=== PATIENT | male | born 1960 | race Caucasian/White ===

== ENCOUNTER 2016-10-02 02:52 | Emergency (ER) | payer OTHER ==
[~2016-10-02] VITALS: Ht 182.9 cm; Wt 127.0 kg
[~2016-10-02 02:52] MED LIST: OMEP20CA5 PO; PRIN20TA2 PO
[2016-10-02 02:55] VITALS: BP 174/85; PULSE 85; RESP 16; TEMP 98.5; O2SAT 99
[2016-10-02] MEDS ORDERED: LISI-515 PO (03:19)
--- NOTE | 2016-10-02 03:26 | PD ---
HPI Chief Complaint: Injury Time Seen by Provider: 03:23 Travel History International Travel<30 days: No Contact w/Intl Traveler<30days: No Traveled to known affect area: No History of Present Illness HPI 55-year-old [id number] white male presents emergency Department with complaints of right hand pain. He states that 2 days ago he had struck a filing cabinet with his right hand. He states that he had struck it with his open palm into the corner. He had sudden severe pain followed by some bruising. He iced it down initially and seemed to have improvement. He states now over the last couple of days he is had worsening pain up into his thumb and some tingling. States that the pain has actually gotten worse since the initial injury. He feels the finger is somewhat stiff. Pain is mild-to- moderate. Worse with movement. Some relief with elevation and ice. PFSH Past Medical History Narrative Medical Hypertension GERD: Yes Hypertension: Yes Musculoskeletal: Yes (CHRONIC NECK AND SHOULDER PAIN) Immunizations Current: Yes Tetanus Vaccination: Unknown Influenza Vaccination: No Past Surgical History Surgical History: No Previous Surgery Social History Alcohol Use: No Tobacco Use: No Substance Use: No Allergies-Medications (Allergen,Severity, Reaction): Coded Allergies: Amoxicillin (Verified Allergy, Severe, 09/07/09) Sulfa (Verified Allergy, Severe, 09/07/09) Reported Meds & Prescriptions Reported Meds & Active Scripts Active Reported Lisinopril 20 Mg Tab 20 Mg PO DAILY Review of Systems Except as stated in HPI: all other systems reviewed are Neg Physical Exam Narrative GENERAL: This is a well-nourished, well-developed patient, in no apparent distress. SKIN: No rashes, ecchymoses or lesions. Warm and dry. HEAD: Atraumatic. Normocephalic. EYES: PERRL, EOMI, no discharge or injection. No scleral icterus. EARS: Clear NOSE: Nasal turbinates appear normal. THROAT: Mucosa pink and moist. Airway patent. NECK: Trachea midline. supple, moves head freely. LUNGS: Clear to auscultation. CV: Regular in rhythm. ABDOMEN: Soft nontender. EXT: No clubbing cyanosis . Examination of the right hand reveals tenderness, swelling and ecchymosis to the thenar eminence. The skin is intact. There is no bony tenderness to palpation of the thumb or metacarpals. He has full active and passive range of motion but does elicit moderate discomfort. No pain in the wrist. Good pulses. Good Refill. Data Data Last Documented VS Vital Signs Date Time Temp Pulse Resp B/P Pulse Ox O2 Delivery O2 Flow Rate FiO2 10/02/16 02:55 98.5 85 16 174/85 99 Room Air Orders Hand, Complete ([id number]) (10/02/16 03:17) MDM Medical Decision Making Medical Screen Exam Complete: Yes Emergency Medical Condition: Yes Medical Record Reviewed: Yes Interpretation(s) Right hand: Negative for acute bony injury. Differential Diagnosis MDM: High Differential diagnoses: Fracture, sprain, strain, dislocation, contusion, neurovascular injury Narrative Course Patient's history and exam is consistent with a soft tissue contusion hematoma to the hand. X-rays are negative. Patient is advised to continue ice and elevation and ibuprofen. Diagnosis Primary Impression: contusion/hematoma right hand Additional Impression: Hypertension Qualified Code: I10 - Essential hypertension Patient Instructions: General Instructions Additional Instructions: Rest. Elevation. Continue ice for any acute swelling or pain. 3 Advil every 6 hours for the next week. Recheck with a primary care doctor in 1 week. Return to the ER for any problems. Disposition: 01 DISCHARGE HOME Condition: Stable [place] Posadas Oct 02, 2016 03:26
--- NOTE | 2016-10-02 04:08 | RADRPT ---
EXAM DATE/TIME: 10/02/2016 03:38 [facility] COMPARISON: No previous studies available for comparison. INDICATIONS : Right hand pain after hitting hand against hard and heavy object. MEDICAL HISTORY : None. SURGICAL HISTORY : None. ENCOUNTER: Initial ACUITY: 2 days PAIN SCORE: 7/10 LOCATION: Right lateral hand FINDINGS: Three view examination of the right hand demonstrates no soft tissue swelling, dislocation, or fractu re. The carpal bones appear intact. The interphalangeal and metacarpophalangeal joints are intact. There are mild degenerative changes of the PIP and PIP joints. Bony mineralization is normal. CONCLUSION: 1. No acute fracture or joint dislocation 2. Mild degenerative changes. Doc Mccormick MD on October 02, 2016 at 4:06 Board Certified Radiologist. This report was verified electronically.
== END 2016-10-02 04:27 | disposition home or self-care (01) ==
LOC: NEPK 02:52
DX: S60.221A Contusion of right hand, initial encounter (principal); I10 Essential (primary) hypertension; W22.8XXA Striking against or struck by other objects, initial encounter; Y93.9 Activity, unspecified; Y92.9 Unspecified place or not applicable; K21.9 Gastro-esophageal reflux disease without esophagitis
CPT/HCPCS: 73130; 99283

== ENCOUNTER 2017-11-20 05:55 | Inpatient (IN) | payer SELFPAY ==
[~2017-11-20] VITALS: Ht 182.9 cm; Wt 114.5 kg
[2017-11-20] VITALS (26 sets, daily range): BP systolic 103–175; BP diastolic 61–104; PULSE 45–85; RESP 16–18; TEMP 97.7–98.1; O2SAT 95–99
[~2017-11-20 05:55] MED LIST changes: +LISI-515 PO; -OMEP20CA5 PO; -PRIN20TA2 PO
[2017-11-20] MEDS ORDERED: OMEP20TA93 PO (06:12)
[2017-11-20] MEDS ORDERED: AMLO10TA2 PO (06:12)
[2017-11-20] MEDS ORDERED: ASPIRIN 81 MG CHEW TAB PO ONE (06:15)
[2017-11-20] MEDS ORDERED: SODIUM CHLORIDE 0.9% FLUSH 10 ML FLUSH IVF PRN (06:15)
[2017-11-20] MEDS ORDERED: SODIUM CHLORID 0.9% 500 ML INJ 500 ML IV ONE ×2 (06:15→07:00)
[2017-11-20 06:16] LABS: AUTOMATED NEUTROPHIL # 7.7 TH/MM3 (1.8-7.7); BASOPHIL # 0.1 TH/MM3 (0-0.2); BASOPHIL % 1.6 % (0.0-2.0); EOSINOPHIL % 0.5 % (0.0-4.0); HEMATOCRIT 52.7 % (39.0-51.0); HEMOGLOBIN 17.3 GM/DL (13.0-17.0); LYMPH % 12.3 % (9.0-44.0); LYMPHOCYTE # 1.1 TH/MM3 (1.0-4.8); MEAN CELL VOLUME 82.9 FL (80.0-100.0); MEAN CORPUSCULAR HEMOGLOBIN 27.3 PG (27.0-34.0); MEAN CORPUSCULAR HGB CONC 32.9 % (32.0-36.0); MEAN PLATELET VOLUME 7.6 FL (7.0-11.0); MONO % 2.5 % (0.0-8.0); MONOCYTE # 0.2 TH/MM3 (0-0.9); NEUT % 83.1 % (16.0-70.0); PLATELET COUNT 309 TH/MM3 (150-450); RED BLOOD COUNT 6.36 MIL/MM3 (4.50-5.90); RED CELL DISTRIBUTION WIDTH 12.8 % (11.6-17.2); WHITE BLOOD COUNT 9.1 TH/MM3 (4.0-11.0)
[2017-11-20 06:26] LABS: CHLORIDE 104 MEQ/L (98-107); SODIUM (NA) 138 MEQ/L (136-145)
[2017-11-20 06:28] LABS: INTERNATIONAL NORMALIZED RATIO 1.1 RATIO; PROTHROMBIN TIME - PATIENT 10.7 SEC (9.8-11.6)
[2017-11-20 06:29] LABS: BICARBONATE 25.4 MEQ/L (21.0-32.0); BLOOD UREA NITROGEN 14 MG/DL (7-18); CALCIUM 9.7 MG/DL (8.5-10.1); GLUCOSE,RANDOM 141 MG/DL (74-106); MAGNESIUM 2.3 MG/DL (1.5-2.5)
[2017-11-20 06:33] LABS: GLOMERULAR FILTRATION RATE 86 ML/MIN (>89)
[2017-11-20] MEDS: NITROGLYCERIN 0.4 MG SL 25 TABS/BTL SL SCH ×3 (06:34→07:00)
--- NOTE | 2017-11-20 06:34 | RADRPT ---
EXAM DATE: 11/20/2017 6:23 AM EDT AGE/SEX: 57 years / Male INDICATIONS: Patient complains of burning sensation in center of chest. CLINICAL DATA: This is the patient's initial encounter. Patient reports that signs and symptoms have been present for 1 week and indicates a pain score of 2/10. MEDICAL/SURGICAL HISTORY: None. None. COMPARISON: No prior exams available for comparison. FINDINGS: Single AP view the chest. Focal 3 cm round 1 cm elongated perihilar density in the right mi dlung. Lungs are otherwise clear Cardiomediastinal silhouette within normal limits. No evidence of p leural effusion or pneumothorax. CONCLUSION: Focal density in the right midlung may represent superimposition of bronchovascular struc tures. However it is asymmetric and focal consolidation or mass are also differential diagnosis. Camilo mmend PA and lateral views for further evaluation. Electronically signed by: Paul Tobin MD 11/20/2017 6:33 AM EDT
--- NOTE | 2017-11-20 06:35 | PD ---
HPI Chief Complaint: Chest Pain Time Seen by Provider: 06:04 Travel History International Travel<30 days: No Contact w/Intl Traveler<30days: No Traveled to known affect area: No History of Present Illness HPI 57-year-old male with a past medical history of hypertension and a positive family history of heart disease presents to the emergency room with chest pain that started last night around 11 PM. Pain was 10 out of 10 midsternal nonradiating associated with nausea and shortness of breath. 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 In the emergency room the patient is alert oriented 3 in no apparent distress his chest pain about 4 out of 10. Patient denies smoking drugs or alcohol. Shortly after arrival and during the interview the patient heart rate dropped in the 40s with significant feeling of indigestion and nausea. Symptoms lasted a few seconds and resolved spontaneously. An EKG was done on arrival and it showed normal sinus rhythm at [address] depression in V2 and the 3 without T-wave changes. Patient does not have a affiliate marketing coordinator. He had a negative stress test more than 5 years ago PFS Past Medical History Cardiovascular Problems: Yes (HTN) High Cholesterol: Yes GERD: Yes Hypertension: Yes Musculoskeletal: Yes (CHRONIC NECK AND SHOULDER PAIN) Immunizations Current: Yes Sleep Apnea: Yes (NO CPAP USE) Triglycerides - High: Yes Tetanus Vaccination: > 5 Years Influenza Vaccination: No Past Surgical History Surgical History: No Previous Surgery Social History Alcohol Use: Yes ("VERY RARELY") Tobacco Use: No Substance Use: No Allergies-Medications (Allergen,Severity, Reaction): Coded Allergies: Sulfa (Sulfonamide Antibiotics) (Unverified Allergy, Severe, 11/20/17) amoxicillin (Unverified Allergy, Severe, 11/20/17) Reported Meds & Prescriptions Reported Meds & Active Scripts Active Reported Omeprazole 20 Mg Tab 20 Mg PO DAILY Amlodipine (Amlodipine Besylate) 10 Mg Tab 10 Mg PO DAILY Lisinopril 20 Mg Tab 20 Mg PO DAILY Review of Systems Except as stated in HPI: all other systems reviewed are Neg General / Constitutional: No: Fever, Chills Eyes: No: Blurred Vision, Redness, Pain HENT: No: Rhinorrhea, Congestion, Neck Stiffness, Neck Pain, Earache Cardiovascular: Positive: Chest Pain or Discomfort Respiratory: Positive: Shortness of Breath Gastrointestinal: No: Nausea, Vomiting, Diarrhea, Abdominal Pain, Hematochezia , Constipation Genitourinary: No: Dysuria Musculoskeletal: No: Myalgias Skin: No Rash, No Hives Neurologic: No: Weakness, Dizziness, Syncope, Headache, Slurred Speech, Seizures Psychiatric: No: Suicidal Ideations Physical Exam Narrative Vital Signs Date Time Temp Pulse Resp B/P (MAP) Pulse Ox O2 Delivery O2 Flow Rate FiO2 11/20/17 06:06 97.7 85 18 174/104 (127) 97 GENERAL: Patient is alert and oriented -3 SKIN: Focused skin assessment warm/dry. HEAD: Atraumatic. Normocephalic. EYES: Pupils equal and round. No scleral icterus. No injection or drainage. ENT: No nasal bleeding or discharge. Mucous membranes pink and moist. NECK: Trachea midline. No JVD. CARDIOVASCULAR: Regular rate and rhythm. No murmur appreciated. RESPIRATORY: No accessory muscle use. Clear to auscultation. Breath sounds equal bilaterally. GASTROINTESTINAL: Abdomen soft, non-tender, nondistended. Hepatic and splenic margins not palpable. MUSCULOSKELETAL: No obvious deformities. No clubbing. No cyanosis. No edema. NEUROLOGICAL: Awake and alert. No obvious cranial nerve deficits. Motor grossly within normal limits. Normal speech. PSYCHIATRIC: Appropriate mood and affect; insight and judgment normal. Data Data Last Documented VS Vital Signs Date Time Temp Pulse Resp B/P (MAP) Pulse Ox O2 Delivery O2 Flow Rate FiO2 11/20/17 06:45 76 124/74 (91) 95 Nasal Cannula 2.00 11/20/17 06:06 97.7 18 Orders Orders Electrocardiogram (11/20/17 06:04) Basic Metabolic Panel (Bmp) (11/20/17 06:04) Ckmb (Isoenzyme) Profile (11/20/17 06:04) Complete Blood Count With Diff (11/20/17 06:04) Magnesium (Mg) (11/20/17 06:04) Prothrombin Time / Inr (Pt) (11/20/17 06:04) Act Partial Throm Time (Ptt) (11/20/17 06:04) Troponin I (11/20/17 06:04) Chest, Single Ap (11/20/17 06:04) Ecg Monitoring (11/20/17 06:04) Bilateral Bp Monitoring (11/20/17 06:04) Iv Access Insert/Monitor (11/20/17 06:04) Oximetry (11/20/17 06:04) Oxygen Administration (11/20/17 06:04) Aspirin Chew (Aspirin Chew) (11/20/17 06:15) Sodium Chloride 0.9% Flush (Ns Flush) (11/20/17 06:15) Nitroglycerin Sl (Nitrostat Sl) (11/20/17 06:15) Sodium Chlorid 0.9% 500 Ml Inj (Ns 500 M (11/20/17 06:15) CKMB (11/20/17 06:08) CKMB% (11/20/17 06:08) Heparin Inj (Heparin Inj) (11/20/17 07:00) Heparin Inj (Heparin Inj) (11/20/17 13:00) Heparin Inj (Heparin Inj) (11/20/17 13:00) Heparin-D5w 25,000 U/250 Ml (Heparin-D5w (11/20/17 07:00) Act Partial Throm Time (Ptt) (11/20/17 06:48) Cbc No Diff, Includes Plts (11/20/17 06:48) Cbc No Diff, Includes Plts (11/23/17 06:00) Act Partial Throm Time (Ptt) (11/20/17 13:48) Occult Blood (Hemoccult) Stool (11/20/17 06:48) Heparin Inj (Heparin Inj) (11/20/17 13:00) Heparin Inj (Heparin Inj) (11/20/17 13:00) Admit Order (Ed Use Only) (11/20/17 06:51) Labs Laboratory Tests Test 11/20/17 06:08 White Blood Count 9.1 TH/MM3 Red Blood Count 6.36 MIL/MM3 Hemoglobin 17.3 GM/DL Hematocrit 52.7 % Mean Corpuscular Volume 82.9 FL Mean Corpuscular Hemoglobin 27.3 PG Mean Corpuscular Hemoglobin Concent 32.9 % Red Cell Distribution Width 12.8 % Platelet Count 309 TH/MM3 Mean Platelet Volume 7.6 FL Neutrophils (%) (Auto) 83.1 % Lymphocytes (%) (Auto) 12.3 % Monocytes (%) (Auto) 2.5 % Eosinophils (%) (Auto) 0.5 % Basophils (%) (Auto) 1.6 % Neutrophils # (Auto) 7.7 TH/MM3 Lymphocytes # (Auto) 1.1 TH/MM3 Monocytes # (Auto) 0.2 TH/MM3 Eosinophils # (Auto) 0.0 TH/MM3 Basophils # (Auto) 0.1 TH/MM3 CBC Comment DIFF FINAL Differential Comment Prothrombin Time 10.7 SEC Prothromb Time International Ratio 1.1 RATIO Activated Partial Thromboplast Time 28.9 SEC Blood Urea Nitrogen 14 MG/DL Creatinine 0.90 MG/DL Random Glucose 141 MG/DL Calcium Level 9.7 MG/DL Magnesium Level 2.3 MG/DL Sodium Level 138 MEQ/L Potassium Level 3.9 MEQ/L Chloride Level 104 MEQ/L Carbon Dioxide Level 25.4 MEQ/L Anion Gap 9 MEQ/L Estimat Glomerular Filtration Rate 86 ML/MIN Total Creatine Kinase 217 U/L Creatine Kinase MB 4.2 NG/ML Troponin I 0.27 NG/ML MDM Medical Decision Making Medical Screen Exam Complete: Yes Emergency Medical Condition: Yes Medical Record Reviewed: Yes Differential Diagnosis LA, indigestion, peptic ulcer disease, PE, Narrative Course After 1 sublingual nitro in 500 cc of normal saline patient is pain-free and asymptomatic at this time. Findings have been discussed with the admitting physician. Patient is diagnosed with NSTEMI will be admitted to intensive care unit on heparin drip. Diagnosis Primary Impression: Chest pain Additional Impression: NSTEMI (non-ST elevated myocardial infarction) Admitting Information Admitting Physician Requests: Admit Condition: Critical Dominick Espino MD Nov 20, 2017 06:35
[2017-11-20 06:37] LABS: TROPONIN I 0.27 NG/ML (0.02-0.05)
[2017-11-20] MEDS ORDERED: ACETAMINOPHEN/HYDROcodone 325 MG/7.5 MG TAB PO PRN (07:00)
[2017-11-20] MEDS ORDERED: HEPARIN SODIUM - IV 10,000 UNITS/10 ML VIAL IV ONE (07:00)
[2017-11-20] MEDS ORDERED: HEPARIN-D5W 25,000 U/250 ML 250 ML IV PRN (07:00)
[2017-11-20] MEDS ORDERED: MORPHINE SULFATE 4 MG/ML INJ IV PUSH PRN (07:00)
[2017-11-20] MEDS ORDERED: SODIUM CHLORIDE 0.9% FLUSH 10 ML FLUSH IV FLUSH PRN ×2 (07:00→16:30)
[2017-11-20] MEDS ORDERED: NITROGLYCERIN 0.4 MG SL 25 TABS/BTL SL PRN (07:00)
[2017-11-20] MEDS ORDERED: ACETAMINOPHEN 500 MG CPLT PO PRN (07:00)
[2017-11-20] MEDS ORDERED: MORPHINE SULFATE 2 MG/ML SYRINGE IV PUSH ONE (07:15)
[2017-11-20] MEDS ORDERED: NITROGLYCERIN-D5W 50 MG/250 ML 250 ML IV PRN (07:15)
--- NOTE | 2017-11-20 08:22 | EKG ---
Date Performed: 11/20/2017 Time Performed: 06:26:15 PTAGE: 57 years EKG: Sinus rhythm NONSPECIFIC ST & T-WAVE ABNORMALITY BORDERLINE ECG INTERPRETATION BASED ON A DEFAULT AGE OF 40 YEARS NO PREVIOUS TRACING DOCTOR: Frank Massey Interpretating Date/Time 11/20/2017 08:20:46
--- NOTE | 2017-11-20 08:25 | EKG ---
Date Performed: 11/20/2017 Time Performed: 06:01:48 PTAGE: 57 years EKG: Sinus rhythm ST DEPRESSION, CONSIDER SUBENDOCARDIAL INJURY ABNORMAL ECG NO PREVIOUS TRACING DOCTOR: Frank Massey Interpretating Date/Time 11/20/2017 08:23:53
--- NOTE | 2017-11-20 10:56 | HHI.HP ---
HPI Service [facility] Primary Care Physician Ajay Pena MD Admission Diagnosis NSTEMI ACS Diagnoses: Chief Complaint: chest pain Travel History International Travel<30 Days: No Contact w/Intl Traveler <30 Da: No Traveled to Known Affected Are: No History of Present Illness 57-year-old male with a past medical history of hypertension and a positive family history of heart disease presents to the emergency room with chest pain that started last night around 11 PM. Pain was 10 out of 10 midsternal, nonradiating, associated with nausea, diaphoresis, shortness of breath. 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 In the emergency room the patient is alert oriented 3 in no apparent distress his chest pain about 4 out of 10. Patient denies smoking drugs or alcohol. Shortly after arrival and during the interview the patient heart rate dropped in the 40s with significant feeling of indigestion and nausea. Symptoms lasted a few seconds and resolved spontaneously. An EKG was done on arrival and it showed normal sinus rhythm at [address] depression in V2 and the 3 without T- wave changes. Patient does not have a toe puncher. He had a negative stress test more than 5 years ago. The patient was seen first [facility]. The patient is transferred to [facility]. Review of Systems Except as stated in HPI: all other systems reviewed are Neg Past Family Social History Past Medical History Hypertension, GERD, chronic neck and shoulder pain, sleep apnea not on BiPAP Past Surgical History No surgeries in the past Reported Medications Reported Meds & Active Scripts Active Reported Omeprazole 20 Mg Tab 20 Mg PO DAILY Amlodipine (Amlodipine Besylate) 10 Mg Tab 10 Mg PO DAILY Lisinopril 20 Mg Tab 20 Mg PO DAILY Allergies: Coded Allergies: Sulfa (Sulfonamide Antibiotics) (Unverified Allergy, Severe, 11/20/17) amoxicillin (Unverified Allergy, Severe, 11/20/17) Family History Mother with a history of CABG Father healthy at the age of 93 Social History Denies alcohol use, tobacco use or illicit drug use Physical Exam Vital Signs Vital Signs Date Time Temp Pulse Resp B/P (MAP) Pulse Ox O2 Delivery O2 Flow Rate FiO2 11/20/17 10:00 64 11/20/17 07:20 18 98 Nasal Cannula 2.00 11/20/17 07:20 100 Nasal Cannula 2.00 11/20/17 07:00 98 Nasal Cannula 2.00 11/20/17 06:45 76 124/74 (91) 95 Nasal Cannula 2.00 11/20/17 06:40 56 103/61 (75) 11/20/17 06:31 163/94 (117) 175/97 (123) 11/20/17 06:23 45 115/69 (84) 11/20/17 06:10 99 Room Air 11/20/17 06:06 97.7 85 18 174/104 (127) 97 Physical Exam GENERAL: This is a well-nourished, well-developed patient, in no apparent distress. SKIN: No rashes, ecchymoses or lesions. Cool and dry. HEAD: Atraumatic. Normocephalic. No temporal or scalp tenderness. EYES: Pupils equal round and reactive. Extraocular motions intact. No scleral icterus. No injection or drainage. ENT: Nose without bleeding, purulent drainage or septal hematoma. Throat without erythema, tonsillar hypertrophy or exudate. Uvula midline. Airway patent. NECK: Trachea midline. No JVD or lymphadenopathy. Supple, nontender, no meningeal signs. CARDIOVASCULAR: Regular rate and rhythm without murmurs, gallops, or rubs. RESPIRATORY: Clear to auscultation. Breath sounds equal bilaterally. No wheezes , rales, or rhonchi. GASTROINTESTINAL: Abdomen soft, non-tender, nondistended. No hepato-splenomegaly , or palpable masses. No guarding. MUSCULOSKELETAL: Extremities without clubbing, cyanosis, or edema. No joint tenderness, effusion, or edema noted. No calf tenderness. Negative Homans sign bilaterally. NEUROLOGICAL: Awake and alert. Cranial nerves II through XII intact. Motor and sensory grossly within normal limits. Five out of 5 muscle strength in all muscle groups. Normal speech. Laboratory Laboratory Tests Test 11/20/17 06:08 White Blood Count 9.1 Red Blood Count 6.36 Hemoglobin 17.3 Hematocrit 52.7 Mean Corpuscular Volume 82.9 Mean Corpuscular Hemoglobin 27.3 Mean Corpuscular Hemoglobin Concent 32.9 Red Cell Distribution Width 12.8 Platelet Count 309 Mean Platelet Volume 7.6 Neutrophils (%) (Auto) 83.1 Lymphocytes (%) (Auto) 12.3 Monocytes (%) (Auto) 2.5 Eosinophils (%) (Auto) 0.5 Basophils (%) (Auto) 1.6 Neutrophils # (Auto) 7.7 Lymphocytes # (Auto) 1.1 Monocytes # (Auto) 0.2 Eosinophils # (Auto) 0.0 Basophils # (Auto) 0.1 CBC Comment DIFF FINAL Differential Comment Prothrombin Time 10.7 Prothromb Time International Ratio 1.1 Activated Partial Thromboplast Time 28.9 Blood Urea Nitrogen 14 Creatinine 0.90 Random Glucose 141 Calcium Level 9.7 Magnesium Level 2.3 Sodium Level 138 Potassium Level 3.9 Chloride Level 104 Carbon Dioxide Level 25.4 Anion Gap 9 Estimat Glomerular Filtration Rate 86 Total Creatine Kinase 217 Creatine Kinase MB 4.2 Troponin I 0.27 Result Diagram: 11/20/17 0608 11/20/17 0608 Imaging Last Impressions Chest X-Ray 11/20/17 0604 Signed Impressions: CONCLUSION: Focal density in the right midlung may represent superimposition of bronchovascular structures. However it is asymmetric and focal consolidation o r mass are also differential diagnosis. Recommend PA and lateral views for furt her evaluation. Caprini VTE Risk Assessment Caprini VTE Risk Assessment: Mod/High Risk (score >= 2) Caprini Risk Assessment Model Point Value = 1 Point Value = 2 Point Value = 3 Point Value = 5 Age 41-60 Minor surgery BMI > 25 kg/m2 Swollen legs Varicose veins or History of unexplained or recurrent spontaneous Oral contraceptives or hormone replacement Sepsis (< 1 month) Serious lung disease, including pneumonia (< 1 month) Abnormal pulmonary function Acute myocardial infarction Congestive heart failure (< 1 month) History of inflammatory bowel disease Medical patient at bed rest Age 61-74 Arthroscopic surgery Major open surgery (> 45 min) Laparoscopic surgery (> 45 min) Malignancy Confined to bed (> 72 hours) Immobilizing plaster cast Central venous access Age >= 75 History of VTE Family history of VTE Factor V Leiden Prothrombin [id number] Lupus anticoagulant Anticardiolipin antibodies Elevated serum homocysteine Heparin-induced thrombocytopenia Other congenital or acquired thrombophilia Stroke (< 1 month) Elective arthroplasty Hip, pelvis, or leg fracture Acute spinal cord injury (< 1 month) Prophylaxis Regimen Total Risk Factor Score Risk Level Prophylaxis Regimen 0-1 Low Early ambulation 2 Moderate Order ONE of the following: *Sequential Compression Device (SCD) *Heparin 5000 units SQ BID 3-4 Higher Order ONE of the following medications: *Heparin 5000 units SQ TID *Enoxaparin/Lovenox 40 mg SQ daily (WT < 150 kg, CrCl > 30 mL/min) *Enoxaparin/Lovenox 30 mg SQ daily (WT < 150 kg, CrCl > 10-29 mL/min) *Enoxaparin/Lovenox 30 mg SQ BID (WT < 150 kg, CrCl > 30 mL/min) AND/OR *Sequential Compression Device (SCD) 5 or more Highest Order ONE of the following medications: *Heparin 5000 units SQ TID (Preferred with Epidurals) *Enoxaparin/Lovenox 40 mg SQ daily (WT < 150 kg, CrCl > 30 mL/min) *Enoxaparin/Lovenox 30 mg SQ daily (WT < 150 kg, CrCl > 10-29 mL/min) *Enoxaparin/Lovenox 30 mg SQ BID (WT < 150 kg, CrCl > 30 mL/min) AND *Sequential Compression Device (SCD) Assessment and Plan Assessment and Plan Non-ST elevation DC Hypertension Hyperlipidemia GERD Transfer to the main hospital for cardiac cath . Seen by Dr. Massey plan for cardiac cath Troponin is elevated trending up EKG reviewed Check 2D echo to evaluate for EF and valvular disease Started on heparin drip Received aspirin and beta-myriam Resume home medications as appropriate Discussed with the patient, ICU nurse Physician Certification 2 Midnight Certification Type: Admission for Inpatient Services Order for Inpatient Services The services are ordered in accordance with Medicare regulations or non- Medicare payer requirements, as applicable. In the case of services not specified as inpatient-only, they are appropriately provided as inpatient services in accordance with the 2-midnight benchmark. Estimated LOS (days): 3 days is the estimated time the patient will need to remain in the hospital, assuming treatment plan goals are met and no additional complications. Post-Hospital Plan: Home Elisa Nina MD Nov 20, 2017 10:56
[2017-11-20] MEDS ORDERED: HEPARIN SODIUM - IV 10,000 UNITS/10 ML VIAL IV PRN ×2 (13:00)
[2017-11-20] MEDS ORDERED: HEPARIN SODIUM - IV 10,000 UNITS/10 ML VIAL IV PUSH PRN ×4 (13:00→17:30)
--- NOTE | 2017-11-20 13:36 | MB ---
cc: Frank Massey MD DATE: 11/20/2017 DATE OF CONSULTATION: 11/20/2017 INDICATION: Non-ST elevation myocardial infarction. HISTORY OF PRESENT ILLNESS: This is a very nice, 57-year-old gentleman. He has a history of hypertension, but no prior history of known heart disease. He says over the past few weeks has had exertional chest pain, became much worse last night. He had 10/10 midsternal pain radiating towards his back with associated nausea and shortness of breath. He came into the emergency department and there electrocardiogram showed some ST depression inferiorly. He also has elevated troponin. No recent stress test or cardiac catheterization. He has had intentional weight loss recently, about 40 pounds in the past 6 months. He was transferred from [facility] over to the intensive care unit here for anticipation of cardiac catheterization. PAST MEDICAL HISTORY: Hypertension, hyperlipidemia, GERD and chronic neck and shoulder pain, sleep apnea. SOCIAL HISTORY: Occasional alcohol use. Denies any tobacco or drug use. ALLERGIES: SULFA, AMOXICILLIN. REPORTED MEDICATIONS: 1. Omeprazole. 2. Amlodipine. 3. Lisinopril. REVIEW OF SYSTEMS: A 12-point review of system was performed, negative unless otherwise noted in the History Of Present Illness. PHYSICAL EXAMINATION: VITAL SIGNS: Pulse 64, blood pressure 125/82 mmHg. GENERAL: Alert and oriented x 3, in no acute distress. HEENT: Shows pupils reactive to light and accommodation. Extraocular movements are intact. NECK: No elevation of jugular venous distention. No thyromegaly. No lymphadenopathy. No carotid bruits. LUNGS: Clear to auscultation bilaterally. CARDIOVASCULAR: Regular rate and rhythm without murmurs, rubs or gallops. ABDOMEN: Nontender, nondistended. Bowel sounds positive. No hepatosplenomegaly. EXTREMITIES: Show no clubbing, cyanosis or edema. Good peripheral pulses. NEUROLOGIC: Cranial nerves intact. Motor, sensory grossly intact. LABORATORY DATA: WBC 9.1, hemoglobin is 17.3, platelet count is 309. INR is 1.1. Sodium 138, potassium 3.9, BUN is 14, creatinine 0.9. Troponin 0.27. ASSESSMENT: 1. Non-ST elevation myocardial infarction. 2. Hypertension. 3. Hyperlipidemia. PLAN: The patient has suggestive symptoms, cardiovascular risk factors, ischemic electrocardiogram with positive cardiac biomarkers. We will proceed with cardiac catheterization via right radial approach. We will obtain a 2D echocardiogram to evaluate for left ventricular systolic function, rule out any regional wall motion abnormalities or valvular heart disease. He is currently on a heparin drip. We will hold the heparin drip prior to procedure. MD MELINDA Patel/SARAH , 01:22 PM , 01:35 PM
[2017-11-20 13:44] LABS: TROPONIN I 10.6 NG/ML (0.02-0.05)
[2017-11-20] MEDS ORDERED: HEPARIN-NS/PF INJ 1,500 ML ONE (14:46)
[2017-11-20] MEDS ORDERED: NITROGLYCERIN INJ 5 ML ONE (14:47)
[2017-11-20] MEDS ORDERED: HEPARIN SODIUM - IV 10,000 UNITS/10 ML VIAL ONE (14:47)
[2017-11-20] MEDS ORDERED: MIDAZOLAM HCL 2 MG/2 ML VIAL ONE (14:47)
[2017-11-20] MEDS ORDERED: BACITRACIN OINT 0.9 GM PKT TOP ONE (15:45)
[2017-11-20] MEDS ORDERED: MISC INFORMATION XX ONE (15:45)
[2017-11-20] MEDS ORDERED: IOHEXOL 350 MG/ML 100 ML BTL (for Cath Lab) OTHER ONE (15:59)
--- NOTE | 2017-11-20 16:16 | MA ---
cc: Frank Massey MD DATE: 11/20/2017 DATE OF PROCEDURE: 11/20/2017 INDICATION: Non-ST elevation ND. PROCEDURES PERFORMED: 1. Fluoroscopy with interpretation. 2. Coronary angiography. 3. Left heart catheterization. 4. Left ventriculography. 5. Left upper extremity peripheral angiography. METHOD: Risks, benefits and alternatives were discussed with the patient. The patient understood, consented to the procedure. The patient was brought into the cardiac catheterization lab and placed on the catheterization table. The right wrist was prepped and draped in sterile fashion. The right wrist was anesthetized with 2% lidocaine. The right radial artery was cannulated. A 6-American, 7-cm sheath was placed without difficulty. INTRAVENTRICULAR HEMODYNAMICS: Left ventricular pressure measured at 135/8 mmHg. CORONARY ANGIOGRAPHY: 1. Left main coronary has mild luminal irregularities. 2. Left anterior descending coronary has a 75% proximal stenosis. There is a diagonal branch with a 70% stenosis, smaller caliber size. The remainder of the left anterior descending coronary has mild luminal irregularities. 3. Left circumflex gives rise to a large first obtuse marginal branch, there is a 90% stenosis proximally at the bifurcation. 4. Right coronary artery is a dominant vessel, but does give rise to a smaller caliber vessel. The ostium has an 80% stenosis with considerable dampening upon engagement. LEFT UPPER EXTREMITY PERIPHERAL ANGIOGRAPHY: Left subclavian and internal mammary arteries are widely patent. LEFT VENTRICULOGRAPHY: Left ventriculography was performed in the right anterior oblique view using a 30 mL contrast injection. Good opacification. Left ventricular ejection fraction visually estimated at 55%. No significant mitral regurgitation. ASSESSMENT: 1. Severe [place] three-vessel coronary artery disease. 2. Normal left ventricular systolic function and left-sided filling pressures. PLAN: Given the severity and extent of disease, I think the patient would be best served with consideration of surgical revascularization. We will consult Cardiothoracic Surgery. Frank Massey MD MELINDA/SB , 03:45 PM , 04:13 PM
[2017-11-20] MEDS ORDERED: INSULIN REGULAR (IV INFUSION) 100 UNITS in SODIUM CHLORIDE 0.9% INJ 99 ML IV PRN (16:30)
[2017-11-20] MEDS ORDERED: PAPAVERINE INJ 60 MG, NITROGLYCERIN INJ 100 MCG, VERAPAMIL INJ 100 MG in SODIUM CHLORID... IRRIGATION SCH (16:30)
[2017-11-20] MEDS ORDERED: VANCOMYCIN INJ 1,000 MG in SODIUM CHLORIDE 0.9% IRR BTL 1,000 ML IRRIGATION SCH (16:30)
[2017-11-20] MEDS ORDERED: CHLORHEXIDINE GLUCONATE 2 % 1 PACK (2 CLOTHS)(extra cloths) TOPICAL PRN (16:30)
[2017-11-20] MEDS ORDERED: DEXTROSE 50% IN WATER 50 ML VIAL(D50) IV PUSH PRN (16:30)
[2017-11-20] MEDS ORDERED: VANCOMYCIN INJ 1,750 MG in SODIUM CHLORID 0.9% 500 ML INJ 500 ML IV SCH (16:30)
[2017-11-20] MEDS ORDERED: METOPROLOL TARTRATE 25 MG TAB PO SCH (16:30)
[2017-11-20] MEDS ORDERED: CHLORHEXIDINE GLUCONATE 4% SOLN 120 ML BTL TOPICAL SCH (16:30)
[2017-11-20] MEDS ORDERED: HEPARIN 25,000 UNITS-D5W 250 ML - PREMIX IV PRN (17:30)
--- NOTE | 2017-11-20 20:27 | RADRPT ---
EXAM DATE: 11/20/2017 7:56 PM EDT AGE/SEX: 57 years / Male INDICATIONS: Chest pain.Pre-Op Cardiac surgery. CLINICAL DATA: This is the patient's initial encounter. Patient reports that signs and symptoms have been present for 2 days and indicates a pain score of 4/10. MEDICAL/SURGICAL HISTORY: Hypertension. Hypercholesterolemia. Gastroesophageal reflux disease . None. COMPARISON: No prior exams available for comparison. MEASUREMENTS: RIGHT THIGH: Proximal:__6 mm Mid:__ 4 mm Distal:__4 mm LEFT THIGH: Proximal:__8 mm Mid:__5 mm Distal:__4 mm RIGHT CALF: Proximal:__3 mm Mid:__2 mm Distal:__2 mm LEFT CALF: Proximal:__4 mm Mid:__2 mm Distal:__3 mm FINDINGS: The venous system of the lower extremities are patent by color Doppler imaging. Measurements of the leg veins (in mm) are listed above. CONCLUSION: 1. Patent saphenous veins with measurements as above. Electronically signed by: Montana Hahn MD 11/20/2017 8:26 PM EDT
--- NOTE | 2017-11-20 20:28 | RADRPT ---
EXAM DATE: 11/20/2017 7:58 PM EDT AGE/SEX: 57 years / Male INDICATIONS: Pre-Op Cardiac Surgery. CLINICAL DATA: This is the patient's initial encounter. Patient reports that signs and symptoms have been present for 2 days and indicates a pain score of 4/10. MEDICAL/SURGICAL HISTORY: Hypercholesterolemia. Hypertension. Gastroesophageal reflux disease . None. COMPARISON: No prior exams available for comparison. TECHNIQUE: Venous ultrasound of both lower extremities was performed from the inguinal ligament to t he proximal calf. Real-time, color Doppler and spectral tracing, compression and augmentation techni ques were used. FINDINGS: Right Leg: There is normal compressibility of the deep venous system from the inguinal region to the proximal calf. No echogenic clot is seen in the lumen of the common femoral, femoral, popliteal, an d posterior tibial veins. There is a normal response of the venous system to proximal and distal aug mentation and respiration. Left Leg: There is normal compressibility of the deep venous system from the inguinal region to the proximal calf. No echogenic clot is seen in the lumen of the common femoral, femoral, popliteal, and posterior tibial veins. There is a normal response of the venous system to proximal and distal augm entation and respiration. CONCLUSION: 1. The study is negative for bilateral lower extremity deep venous thrombosis. Electronically signed by: Montana Hahn MD 11/20/2017 8:26 PM EDT
--- NOTE | 2017-11-20 20:29 | RADRPT ---
EXAM DATE: 11/20/2017 8:02 PM EDT AGE/SEX: 57 years / Male INDICATIONS: Pre-Op Cardiac Surgery. CLINICAL DATA: This is the patient's initial encounter. Patient reports that signs and symptoms have been present for 2 days and indicates a pain score of 4/10. MEDICAL/SURGICAL HISTORY: Hypercholesterolemia. Hypertension. Gastroesophageal reflux disease . None. COMPARISON: No prior exams available for comparison. VELOCITY PARAMETERS: ICA/CCA Ratio: Right 0.85 , Left 1.49 ICA: Right 75 cm/sec, Left 123 cm/sec CCA: Right 88 cm/sec, Left 83 cm/sec ECA: Right 106 cm/sec, Left 133 cm/sec Vertebral: Right 54 cm/sec antegrade, Left 44 cm/sec antegrade FINDINGS: Right Carotid: No significant stenosis is visualized. The waveforms are within normal limits. Left Carotid: Mild eccentric plaquing involving the bulb and ICA origin. Other: None. CONCLUSION: 1. Right Internal Carotid Artery: No evidence of flow-limiting stenosis. 2. Left Internal Carotid Artery: Eccentric plaque without significant flow limitation. Electronically signed by: Montana Hahn MD 11/20/2017 8:28 PM EDT
[2017-11-20] MEDS: SODIUM CHLORIDE 0.9% FLUSH 10 ML FLUSH IV FLUSH SCH ×2 (21:00→21:15)
[2017-11-21] VITALS (14 sets, daily range): BP systolic 113–138; BP diastolic 67–90; PULSE 63–74; RESP 16–18; TEMP 97.8–98.3; O2SAT 95–100
[2017-11-21] MEDS: CHLORHEXIDINE GLUCONATE 2 % 1 PACK (2 CLOTHS)(taper/protocol) TOPICAL SCH (04:00)
[2017-11-21 04:04] LABS: AUTOMATED NEUTROPHIL # 5.7 TH/MM3 (1.8-7.7); BASOPHIL % 0.5 % (0.0-2.0); EOSINOPHIL # 0.1 TH/MM3 (0-0.4); EOSINOPHIL % 1.2 % (0.0-4.0); HEMATOCRIT 44.4 % (39.0-51.0); HEMOGLOBIN 15.2 GM/DL (13.0-17.0); LYMPH % 26.4 % (9.0-44.0); LYMPHOCYTE # 2.3 TH/MM3 (1.0-4.8); MEAN CELL VOLUME 81.4 FL (80.0-100.0); MEAN CORPUSCULAR HEMOGLOBIN 27.8 PG (27.0-34.0); MEAN CORPUSCULAR HGB CONC 34.2 % (32.0-36.0); MEAN PLATELET VOLUME 8.1 FL (7.0-11.0); MONOCYTE # 0.6 TH/MM3 (0-0.9); NEUT % 64.9 % (16.0-70.0); PLATELET COUNT 224 TH/MM3 (150-450); RED BLOOD COUNT 5.45 MIL/MM3 (4.50-5.90); RED CELL DISTRIBUTION WIDTH 13.5 % (11.6-17.2); WHITE BLOOD COUNT 8.7 TH/MM3 (4.0-11.0)
[2017-11-21 04:28] LABS: ALBUMIN 3.7 GM/DL (3.4-5.0); AST (GOT) 109 U/L (15-37); BICARBONATE 24.4 MEQ/L (21.0-32.0); BLOOD UREA NITROGEN 8 MG/DL (7-18); CALCIUM 8.9 MG/DL (8.5-10.1); CHLORIDE 105 MEQ/L (98-107); CREATININE 0.76 MG/DL (0.60-1.30); DIRECT BILIRUBIN ADULT 0.1 MG/DL (0.0-0.2); GLOMERULAR FILTRATION RATE 105 ML/MIN (>89); GLUCOSE,RANDOM 83 MG/DL (74-106); SODIUM (NA) 140 MEQ/L (136-145)
[2017-11-21 04:29] LABS: ALT (GPT) 35 U/L (12-78); CHOLESTEROL 188 MG/DL (120-200); TRIGLYCERIDES 132 MG/DL (42-150)
[2017-11-21 04:32] LABS: ALKALINE PHOSPHATASE 58 U/L (45-117); CHOLESTEROL/ HDL RATIO 5.67 RATIO; HDL CHOLESTEROL 33.1 MG/DL (40.0-60.0); INDIRECT BILIRUBIN 0.5 MG/DL (0.0-0.8); LDL CHOLESTEROL 129 MG/DL (0-99); TOTAL BILIRUBIN ADULT 0.6 MG/DL (0.2-1.0); TOTAL PROTEIN 7.4 GM/DL (6.4-8.2)
--- NOTE | 2017-11-21 08:11 | PD.CARD.PN ---
Subjective Subjective Remarks rested comfortably overnight. no chest pain or sob. 6 beat run of NSVT overnight , asymptomatic. troponin levels increasing (0.27-10.6-17) (Evelin Johnson) Objective Medications Current Medications Medications (Trade) Dose Ordered Sig/Reji Route Start Time Stop Time Status Last Admin (NS Flush) 2 ml BID IV FLUSH 11/20/17 09:00 11/20/17 21:15 (NS Flush) 2 ml UNSCH PRN IV FLUSH 11/20/17 07:00 (Nitrostat Sl) 0.4 mg Q5M PRN SL 11/20/17 07:00 (Tylenol) 500 mg Q4H PRN PO 11/20/17 07:00 ([place] 7.5-325 Mg) 1 tab Q4H PRN PO 11/20/17 07:00 (Morphine Inj) 2 mg Q2H PRN IV PUSH 11/20/17 07:00 Nitroglycerin/ Dextrose 250 ml @ 1.5 mls/hr TITRATE PRN IV 11/20/17 07:15 (Flu (Quadrivalent) Vaccine Inj) 0.5 ml ONCE ONCE IM 11/21/17 10:00 11/21/17 10:01 (Pneumovax-23 Inj) 25 mcg ONCE ONCE IM 11/21/17 10:00 11/21/17 10:01 ([facility] Nursing Information) Patient in critical care unit? Ass... Q361D .XX 11/20/17 16:30 11/20/17 16:30 (Chlorhexidine 2% Cloth) 3 pack DAILY@04 TOPICAL 11/21/17 04:00 11/25/17 04:01 11/21/17 04:00 (Chlorhexidine 2% Cloth) 3 pack UNSCH PRN TOPICAL 11/20/17 16:30 11/25/17 16:29 (NS Flush) 2 ml BID IV FLUSH 11/20/17 21:00 11/20/17 21:00 (NS Flush) 2 ml UNSCH PRN IV FLUSH 11/20/17 16:30 Papaverine HCl 60 mg/Nitroglycerin 100 mcg/Verapamil HCl 100 mg/Sodium Chloride 100 ml @ 0 mls/hr ORCHID HAND IRRIGATION 11/20/17 16:30 11/27/17 16:29 Vancomycin HCl 1000 mg/Sodium Chloride 1,000 ml @ 0 mls/hr ORCHID HAND IRRIGATION 11/20/17 16:30 11/27/17 16:29 Vancomycin HCl 1750 mg/Sodium Chloride 517.5 ml @ 258.75 mls/ hr ORCHID HAND IV 11/20/17 16:30 11/27/17 16:29 (Lopressor) 12.5 mg ORCHID HAND PO 11/20/17 16:30 11/27/17 16:29 (Hibiclens 4% Top Soln) 1 applic ORCHID HAND TOPICAL 11/20/17 16:30 11/27/17 16:29 Insulin Human Regular 100 units/ Sodium Chloride 100 ml @ 3 mls/hr TITRATE PRN IV 11/20/17 16:30 11/27/17 16:29 (D50w (Vial) Inj) 50 ml UNSCH PRN IV PUSH 11/20/17 16:30 Heparin Sodium/ Dextrose 250 ml @ 10 mls/hr TITRATE PRN IV 11/20/17 17:30 (Heparin Inj) 5,000 units UNSCH PRN IV PUSH 11/20/17 17:30 (Heparin Inj) 2,500 units UNSCH PRN IV PUSH 11/20/17 17:30 11/21/17 05:46 Vital Signs / I&O Vital Signs Date Time Temp Pulse Resp B/P (MAP) Pulse Ox O2 Delivery O2 Flow Rate FiO2 11/21/17 08:03 98 21 11/21/17 06:00 64 11/21/17 04:00 97.8 69 17 132/79 (96) 100 11/21/17 04:00 69 11/21/17 02:00 63 11/21/17 00:00 98.0 72 16 138/84 (102) 98 11/21/17 00:00 72 11/20/17 22:00 78 11/20/17 20:00 76 11/20/17 19:47 98 11/20/17 19:26 97.9 76 16 136/88 (104) 97 11/20/17 18:40 97.8 77 18 144/68 (93) 97 11/20/17 18:31 98.1 83 140/92 (108) 11/20/17 18:00 64 11/20/17 17:56 97.8 77 18 150/90 (110) 97 11/20/17 16:20 97.8 77 18 144/68 (93) 97 11/20/17 16:00 64 11/20/17 15:00 58 11/20/17 15:00 64 11/20/17 14:47 98.1 58 146/92 (110) 11/20/17 14:00 64 11/20/17 12:00 64 11/20/17 12:00 64 11/20/17 10:57 98.1 58 146/92 (110) 11/20/17 10:00 64 11/20/17 08:50 66 18 125/82 (96) 99 Nasal Cannula 2.00 11/20/17 08:15 66 18 135/86 (102) 99 Nasal Cannula I/O 11/20/17 11/20/17 11/20/17 11/21/17 11/21/17 11/21/17 07:00 15:00 23:00 07:00 15:00 23:00 Intake Total 500 ml 500 ml 280 ml 240 ml Output Total 1200 ml 1100 ml Balance 500 ml 500 ml -920 ml -860 ml Intake Oral 280 ml 240 ml IV Total 500 ml 500 ml Output Urine Total 1200 ml 1100 ml # Voids 3 # Bowel Movements 0 Physical Exam GENERAL: SKIN: Warm and dry. HEAD: Atraumatic. Normocephalic. EYES: Pupils equal and round. No scleral icterus. No injection or drainage. ENT: No nasal bleeding or discharge. NECK: Trachea midline. No JVD. CARDIOVASCULAR: Regular rate and rhythm. no murmurs RESPIRATORY: No accessory muscle use. Clear to auscultation. Breath sounds equal bilaterally. GASTROINTESTINAL: Abdomen soft, non-tender, nondistended. MUSCULOSKELETAL: Extremities without clubbing, cyanosis, or edema. No obvious deformities. NEUROLOGICAL: Awake and alert. No obvious cranial nerve deficits. . Normal speech. PSYCHIATRIC: Appropriate mood and affect; insight and judgment normal. Laboratory Laboratory Tests Test 11/20/17 09:45 11/20/17 12:47 11/21/17 02:55 11/21/17 03:24 Nasal Screen MRSA (PCR) MRSA NOT DETECTED Activated Partial Thromboplast Time 38.7 SEC 32.9 SEC Total Creatine Kinase 885 U/L 823 U/L Creatine Kinase MB 90.3 NG/ML 66.1 NG/ML Creatine Kinase MB % 10.2 % 8.0 % Troponin I 10.60 NG/ML 17.00 NG/ML White Blood Count 8.7 TH/MM3 Red Blood Count 5.45 MIL/MM3 Hemoglobin 15.2 GM/DL Hematocrit 44.4 % Mean Corpuscular Volume 81.4 FL Mean Corpuscular Hemoglobin 27.8 PG Mean Corpuscular Hemoglobin Concent 34.2 % Red Cell Distribution Width 13.5 % Platelet Count 224 TH/MM3 Mean Platelet Volume 8.1 FL Neutrophils (%) (Auto) 64.9 % Lymphocytes (%) (Auto) 26.4 % Monocytes (%) (Auto) 7.0 % Eosinophils (%) (Auto) 1.2 % Basophils (%) (Auto) 0.5 % Neutrophils # (Auto) 5.7 TH/MM3 Lymphocytes # (Auto) 2.3 TH/MM3 Monocytes # (Auto) 0.6 TH/MM3 Eosinophils # (Auto) 0.1 TH/MM3 Basophils # (Auto) 0.0 TH/MM3 CBC Comment DIFF FINAL Differential Comment Blood Urea Nitrogen 8 MG/DL Creatinine 0.76 MG/DL Random Glucose 83 MG/DL Total Protein 7.4 GM/DL Albumin 3.7 GM/DL Calcium Level 8.9 MG/DL Alkaline Phosphatase 58 U/L Aspartate Amino Transf (AST/SGOT) 109 U/L Alanine Aminotransferase (ALT/SGPT) 35 U/L Total Bilirubin 0.6 MG/DL Direct Bilirubin 0.1 MG/DL Sodium Level 140 MEQ/L Potassium Level 3.6 MEQ/L Chloride Level 105 MEQ/L Carbon Dioxide Level 24.4 MEQ/L Anion Gap 11 MEQ/L Estimat Glomerular Filtration Rate 105 ML/MIN Indirect Bilirubin 0.5 MG/DL Triglycerides Level 132 MG/DL Cholesterol Level 188 MG/DL LDL Cholesterol 129 MG/DL HDL Cholesterol 33.1 MG/DL Cholesterol/HDL Ratio 5.67 RATIO Imaging Last 48 hours Impressions Chest X-Ray 11/20/17 0604 Signed Impressions: CONCLUSION: Focal density in the right midlung may represent superimposition of bronchovascular structures. However it is asymmetric and focal consolidation o r mass are also differential diagnosis. Recommend PA and lateral views for furt her evaluation. Lower Extremity Ultrasound 11/20/17 Signed Impressions: CONCLUSION: 1. Patent saphenous veins with measurements as above. Lower Extremity Ultrasound 11/20/17 Signed Impressions: CONCLUSION: 1. The study is negative for bilateral lower extremity deep venous thrombosis. Carotid Artery Ultrasound 11/20/17 0000 Signed Impressions: CONCLUSION: 1. Right Internal Carotid Artery: No evidence of flow-limiting stenosis. 2. Left Internal Carotid Artery: Eccentric plaque without significant flow fields itation. (Evelin Johnson) Assessment and Plan Problem List: (1) Chest pain ICD Codes: R07.9 - Chest pain, unspecified Status: Acute (2) NSTEMI (non-ST elevated myocardial infarction) ICD Codes: I21.4 - Non-ST elevation (NSTEMI) myocardial infarction Status: Acute Assessment and Plan 57 yo obese WM with HTN, HLD and sleep apnea presented with chest pain and NSTEMI. troponins increasing 0.27--> 10.6--> 17.0 heparinized NSTEMI- cardiac catheterization 11/20/17 revealed severe [place]bil[place] 3 vessel disease involving the LAD, RCA and Lcx cardiothoracic surgery has been consulted for consideration of surgery patient stable and feeling well (Evelin Johnson) Assessment and Plan severe 3vCAD in setting of NSTEMI. Continue medical management with heparin gtt and CTS consult for CABG. Patient is CP free. (Donavon Marie DO) Evelin Johnson Nov 21, 2017 08:11 Donavon Marie DO Nov 21, 2017 08:40
[2017-11-21] MEDS: SODIUM CHLORIDE 0.9% FLUSH 10 ML FLUSH IV FLUSH SCH ×4 (09:00→21:38)
--- NOTE | 2017-11-21 09:57 | HHI.PR ---
Subjective Remarks No chest pain overnight. No palpitations. No diaphoresis no nausea. Eating okay. Awaiting for cardiothoracic surgery evaluation and hopes surgery will be soon. Family at bedside very supportive. Objective Vitals Vital Signs Date Time Temp Pulse Resp B/P (MAP) Pulse Ox O2 Delivery O2 Flow Rate FiO2 11/21/17 08:03 98 21 11/21/17 08:00 98.0 69 17 123/84 (97) 100 11/21/17 08:00 64 11/21/17 06:00 64 11/21/17 04:00 97.8 69 17 132/79 (96) 100 11/21/17 04:00 69 11/21/17 02:00 63 11/21/17 00:00 98.0 72 16 138/84 (102) 98 11/21/17 00:00 72 11/20/17 22:00 78 11/20/17 20:00 76 11/20/17 19:47 98 11/20/17 19:26 97.9 76 16 136/88 (104) 97 11/20/17 18:40 97.8 77 18 144/68 (93) 97 11/20/17 18:31 98.1 83 140/92 (108) 11/20/17 18:00 64 11/20/17 17:56 97.8 77 18 150/90 (110) 97 11/20/17 16:20 97.8 77 18 144/68 (93) 97 11/20/17 16:00 64 11/20/17 15:00 58 11/20/17 15:00 64 11/20/17 14:47 98.1 58 146/92 (110) 11/20/17 14:00 64 11/20/17 12:00 64 11/20/17 12:00 64 11/20/17 10:57 98.1 58 146/92 (110) 11/20/17 10:00 64 I/O 11/20/17 11/20/17 11/20/17 11/21/17 11/21/17 11/21/17 07:00 15:00 23:00 07:00 15:00 23:00 Intake Total 500 ml 500 ml 280 ml 240 ml Output Total 1200 ml 1100 ml Balance 500 ml 500 ml -920 ml -860 ml Intake Oral 280 ml 240 ml IV Total 500 ml 500 ml Output Urine Total 1200 ml 1100 ml # Voids 3 # Bowel Movements 0 Result Diagram: 11/21/17 0255 11/21/17 0255 Imaging Last Impressions Chest X-Ray 11/20/17 0604 Signed Impressions: CONCLUSION: Focal density in the right midlung may represent superimposition of bronchovascular structures. However it is asymmetric and focal consolidation o r mass are also differential diagnosis. Recommend PA and lateral views for furt her evaluation. Lower Extremity Ultrasound 11/20/17 0000 Signed Impressions: CONCLUSION: 1. Patent saphenous veins with measurements as above. Carotid Artery Ultrasound 11/20/17 0000 Signed Impressions: CONCLUSION: 1. Right Internal Carotid Artery: No evidence of flow-limiting stenosis. 2. Left Internal Carotid Artery: Eccentric plaque without significant flow fields itation. Objective Remarks GENERAL: This is a well-nourished, well-developed patient, in no apparent distress. CARDIOVASCULAR: Regular rate and rhythm without murmurs, gallops, or rubs. RESPIRATORY: Clear to auscultation. Breath sounds equal bilaterally. No wheezes , rales, or rhonchi. GASTROINTESTINAL: Abdomen soft, non-tender, nondistended. No hepato-splenomegaly , or palpable masses. No guarding. MUSCULOSKELETAL: Extremities without clubbing, cyanosis, or edema. No joint tenderness, effusion, or edema noted. No calf tenderness. Negative Homans sign bilaterally. NEUROLOGICAL: Awake and alert. Cranial nerves II through XII intact. Motor and sensory grossly within normal limits. Five out of 5 muscle strength in all muscle groups. Normal speech. Procedures Status post cardiac cath 11/20/[address] Bryson rice A/P Assessment and Plan Very pleasant 57-year-old male with history of hypertension, hyperlipidemia, GERD presented with chest pain and an NSTEMI, S/P Cardiac cath patient with 3 vessel disease CTS consulted plan for CABG Non-ST elevation MD. S/P Cardiac cath patient with 3 vessel disease CTS consulted plan for CABG Hypertension Hyperlipidemia GERD Transfer to the main hospital for cardiac cath Troponin was elevated and trending up EKG reviewed Dr. Bryson rice, following. Status post cardiac cath 11/20/17 was severe [place] three-vessel disease involving LAD, RCA and Lcx Cardiothoracic surgery has been consulted plan for CABG Check 2D echo to evaluate for EF and valvular disease Started on heparin drip Received aspirin and beta-myriam Resume home medications as appropriate Discussed with the patient, ICU nurse Elisa Nina MD Nov 21, 2017 09:57
[2017-11-21] MEDS ORDERED: INFLUENZA VIRUS VACCINE (QUADRIVALENT) 0.5 ML SYR IM ONE (10:00)
[2017-11-21] MEDS ORDERED: PNEUMOCOCCAL POLYVALENT INJ 25 MCG/0.5 ML SYR IM ONE (10:00)
--- NOTE | 2017-11-21 12:24 | PD.CONS ---
History of Present Illness Service CT Surgery Consult Requested By Dr. Massey Reason for Consult NSTEMI, multivessel CAD Primary Care Physician Ajay Pena MD Diagnoses: (1) CAD (coronary artery disease) (2) Hyperlipidemia (3) Polycythemia (4) NSTEMI (non-ST elevated myocardial infarction) (5) Chest pain (6) Hypertension History of Present Illness 57-year-old male with a past medical history of hypertension and a positive family history of heart disease presents to the emergency room with chest pain. Pain was 10 out of 10 midsternal, nonradiating, associated with nausea, diaphoresis, shortness of breath. 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 Shortly after arrival and during the interview the patient heart rate dropped in the 40s with significant feeling of indigestion and nausea. Symptoms lasted a few seconds and resolved spontaneously. An EKG was done on arrival and it showed normal sinus rhythm at [address] depression in V2 and the 3 without T-wave changes. Patient ruled-in for NSTEMI with elevated troponin. He underwent LHC yesterday by Dr. Massey and was found to have multivessel CAD. he is being considered for CABG. Review of Systems Constitutional: COMPLAINS OF: Diaphoretic episodes, Fatigue, DENIES: Fever, Weight gain, Weight loss, Chills, Dizziness, Change in appetite, Night Sweats Endocrine: DENIES: Heat/cold intolerance, Polydipsia, Polyuria, Polyphagia Eyes: DENIES: Blurred vision, Diplopia, Eye inflammation, Eye pain, Vision loss , Photosensitivity, Double Vision Ears, nose, mouth, throat: DENIES: Tinnitus, Hearing loss, Vertigo, Nasal discharge, Oral lesions, Throat pain, Hoarseness, Ear Pain, Running Nose, Epistaxis, Sinus Pain, Toothache, Odynophagia Respiratory: DENIES: Apneas, Cough, Snoring, Wheezing, Hemoptysis, Sputum production, Shortness of breath Cardiovascular: COMPLAINS OF: Chest pain, DENIES: Palpitations, Syncope, Dyspnea on Exertion, PND, Lower Extremity Edema, Orthopnea, Claudication Gastrointestinal: DENIES: Abdominal pain, Black stools, Bloody stools, Constipation, Diarrhea, Nausea, Vomiting, Difficulty Swallowing, Anorexia Genitourinary: DENIES: Sexual dysfunction, Urinary frequency, Urinary incontinence, Urgency, Hematuria, Dysuria, Nocturia, Penile Discharge, Testicular Pain, Testicular Swelling Musculoskeletal: COMPLAINS OF: Muscle aches, DENIES: Joint pain, Stiffness, Joint Swelling, Back pain, Neck pain Integumentary: DENIES: Abnormal pigmentation, Nail changes, Pruritus, Rash Hematologic/lymphatic: DENIES: Bruising, Lymphadenopathy Immunologic/allergic: DENIES: Eczema, Urticaria Neurologic: DENIES: Abnormal gait, Headache, Localized weakness, Paresthesias, Seizures, Speech Problems, Tremor, Poor Balance Psychiatric: DENIES: Anxiety, Confusion, Mood changes, Depression, Hallucinations, Agitation, Suicidal Ideation, Homicidal Ideation, Delusions Past Family Social History Allergies: Coded Allergies: Sulfa (Sulfonamide Antibiotics) (Unverified Allergy, Severe, 11/20/17) amoxicillin (Unverified Allergy, Severe, 11/20/17) Past Medical History Past Medical History Hypertension, GERD, chronic neck and shoulder pain, sleep apnea not on BiPAP Past Surgical History No surgeries in the past Reported Medications Reported Medications Omeprazole 20 Mg Tab 20 Mg PO DAILY Amlodipine (Amlodipine Besylate) 10 Mg Tab 10 Mg PO DAILY Lisinopril 20 Mg Tab 20 Mg PO DAILY Active Ordered Medications Current Medications Medications (Trade) Dose Ordered Sig/Reji Route Start Time Stop Time Status Last Admin (NS Flush) 2 ml BID IV FLUSH 11/20/17 09:00 11/20/17 21:15 (NS Flush) 2 ml UNSCH PRN IV FLUSH 11/20/17 07:00 (Nitrostat Sl) 0.4 mg Q5M PRN SL 11/20/17 07:00 (Tylenol) 500 mg Q4H PRN PO 11/20/17 07:00 (Upperco 7.5-325 Mg) 1 tab Q4H PRN PO 11/20/17 07:00 (Morphine Inj) 2 mg Q2H PRN IV PUSH 11/20/17 07:00 Nitroglycerin/ Dextrose 250 ml @ 1.5 mls/hr TITRATE PRN IV 11/20/17 07:15 ([facility] [place] [facility]) Patient in critical care unit? Ass... [id number] .XX 11/20/17 16:30 11/20/17 16:30 (Chlorhexidine 2% Cloth) 3 pack DAILY@04 TOPICAL 11/21/17 04:00 11/25/17 04:01 11/21/17 04:00 (Chlorhexidine 2% Cloth) 3 pack UNSCH PRN TOPICAL 11/20/17 16:30 11/25/17 16:29 (NS Flush) 2 ml BID IV FLUSH 11/20/17 21:00 11/20/17 21:00 (NS Flush) 2 ml UNSCH PRN IV FLUSH 11/20/17 16:30 Papaverine HCl 60 mg/Nitroglycerin 100 mcg/Verapamil HCl 100 mg/Sodium Chloride 100 ml @ 0 mls/hr [employer] IRRIGATION 11/20/17 16:30 11/27/17 16:29 Vancomycin HCl 1000 mg/Sodium Chloride 1,000 ml @ 0 mls/hr [employer] IRRIGATION 11/20/17 16:30 11/27/17 16:29 Vancomycin HCl 1750 mg/Sodium Chloride 517.5 ml @ 258.75 mls/ hr ALLEY CLEANER IV 11/20/17 16:30 11/27/17 16:29 (Lopressor) 12.5 mg ALLEY CLEANER PO 11/20/17 16:30 11/27/17 16:29 (Hibiclens 4% Top Soln) 1 applic ALLEY CLEANER TOPICAL 11/20/17 16:30 11/27/17 16:29 Insulin Human Regular 100 units/ Sodium Chloride 100 ml @ 3 mls/hr TITRATE PRN IV 11/20/17 16:30 11/27/17 16:29 (D50w (Vial) Inj) 50 ml UNSCH PRN IV PUSH 11/20/17 16:30 Heparin Sodium/ Dextrose 250 ml @ 10 mls/hr TITRATE PRN IV 11/20/17 17:30 (Heparin Inj) 5,000 units UNSCH PRN IV PUSH 11/20/17 17:30 (Heparin Inj) 2,500 units UNSCH PRN IV PUSH 11/20/17 17:30 11/21/17 05:46 Family History Mother with a history of CABG Father healthy at the age of 93 Social History Denies alcohol use, tobacco use or illicit drug use Works [employer] Physical Exam Vital Signs Vital Signs Date Time Temp Pulse Resp B/P (MAP) Pulse Ox O2 Delivery O2 Flow Rate FiO2 11/21/17 10:00 64 11/21/17 08:03 98 21 11/21/17 08:00 98.0 69 17 123/84 (97) 100 11/21/17 08:00 64 11/21/17 06:00 64 11/21/17 04:00 97.8 69 17 132/79 (96) 100 11/21/17 04:00 69 11/21/17 02:00 63 11/21/17 00:00 98.0 72 16 138/84 (102) 98 11/21/17 00:00 72 11/20/17 22:00 78 11/20/17 20:00 76 11/20/17 19:47 98 11/20/17 19:26 97.9 76 16 136/88 (104) 97 11/20/17 18:40 97.8 77 18 144/68 (93) 97 11/20/17 18:31 98.1 83 140/92 (108) 11/20/17 18:00 64 11/20/17 17:56 97.8 77 18 150/90 (110) 97 11/20/17 16:20 97.8 77 18 144/68 (93) 97 11/20/17 16:00 64 11/20/17 15:00 58 11/20/17 15:00 64 11/20/17 14:47 98.1 58 146/92 (110) 11/20/17 14:00 64 Physical Exam GENERAL: This is a well-nourished, well-developed patient, in no apparent distress. SKIN: No rashes, ecchymoses or lesions. Cool and dry. HEAD: Atraumatic. Normocephalic. No temporal or scalp tenderness. EYES: Pupils equal round and reactive. Extraocular motions intact. No scleral icterus. No injection or drainage. ENT: Nose without bleeding, purulent drainage or septal hematoma. Throat without erythema, tonsillar hypertrophy or exudate. Uvula midline. Airway patent. NECK: Trachea midline. No JVD or lymphadenopathy. Supple, nontender, no meningeal signs. CARDIOVASCULAR: Regular rate and rhythm without murmurs, gallops, or rubs. RESPIRATORY: Clear to auscultation. Breath sounds equal bilaterally. No wheezes , rales, or rhonchi. GASTROINTESTINAL: Abdomen soft, non-tender, nondistended. No hepato-splenomegaly , or palpable masses. No guarding. MUSCULOSKELETAL: Extremities without clubbing, cyanosis, or edema. No joint tenderness, effusion, or edema noted. No calf tenderness. Negative Homans sign bilaterally. NEUROLOGICAL: Awake and alert. Cranial nerves II through XII intact. Motor and sensory grossly within normal limits. Five out of 5 muscle strength in all muscle groups. Normal speech. Laboratory Laboratory Tests Test 11/20/17 12:47 11/21/17 02:55 11/21/17 03:24 Activated Partial Thromboplast Time 38.7 32.9 Total Creatine Kinase 885 823 Creatine Kinase MB 90.3 66.1 Creatine Kinase MB % 10.2 8.0 Troponin I 10.60 17.00 White Blood Count 8.7 Red Blood Count 5.45 Hemoglobin 15.2 Hematocrit 44.4 Mean Corpuscular Volume 81.4 Mean Corpuscular Hemoglobin 27.8 Mean Corpuscular Hemoglobin Concent 34.2 Red Cell Distribution Width 13.5 Platelet Count 224 Mean Platelet Volume 8.1 Neutrophils (%) (Auto) 64.9 Lymphocytes (%) (Auto) 26.4 Monocytes (%) (Auto) 7.0 Eosinophils (%) (Auto) 1.2 Basophils (%) (Auto) 0.5 Neutrophils # (Auto) 5.7 Lymphocytes # (Auto) 2.3 Monocytes # (Auto) 0.6 Eosinophils # (Auto) 0.1 Basophils # (Auto) 0.0 CBC Comment DIFF FINAL Differential Comment Blood Urea Nitrogen 8 Creatinine 0.76 Random Glucose 83 Total Protein 7.4 Albumin 3.7 Calcium Level 8.9 Alkaline Phosphatase 58 Aspartate Amino Transf (AST/SGOT) 109 Alanine Aminotransferase (ALT/SGPT) 35 Total Bilirubin 0.6 Direct Bilirubin 0.1 Sodium Level 140 Potassium Level 3.6 Chloride Level 105 Carbon Dioxide Level 24.4 Anion Gap 11 Estimat Glomerular Filtration Rate 105 Indirect Bilirubin 0.5 Triglycerides Level 132 Cholesterol Level 188 LDL Cholesterol 129 HDL Cholesterol 33.1 Cholesterol/HDL Ratio 5.67 Result Diagram: 11/21/17 0255 11/21/17 0255 Imaging Last Impressions Chest X-Ray 11/20/17 0604 Signed Impressions: CONCLUSION: Focal density in the right midlung may represent superimposition of bronchovascular structures. However it is asymmetric and focal consolidation o r mass are also differential diagnosis. Recommend PA and lateral views for furt her evaluation. Lower Extremity Ultrasound 11/20/17 0000 Signed Impressions: CONCLUSION: 1. Patent saphenous veins with measurements as above. Carotid Artery Ultrasound 11/20/17 0000 Signed Impressions: CONCLUSION: 1. Right Internal Carotid Artery: No evidence of flow-limiting stenosis. 2. Left Internal Carotid Artery: Eccentric plaque without significant flow fields itation. Course Patient is pain-free on IV heparin. Assessment and Plan Problem List: (1) NSTEMI (non-ST elevated myocardial infarction) ICD Codes: I21.4 - Non-ST elevation (NSTEMI) myocardial infarction Status: Acute (2) Chest pain ICD Codes: R07.9 - Chest pain, unspecified Status: Acute (3) Polycythemia ICD Codes: D75.1 - Secondary polycythemia (4) CAD (coronary artery disease) ICD Codes: I25.10 - Atherosclerotic heart disease of [place] coronary artery without angina pectoris (5) Hyperlipidemia ICD Codes: E78.5 - Hyperlipidemia, unspecified (6) Hypertension ICD Codes: I10 - Essential (primary) hypertension Status: Acute Assessment and Plan 57y/o male presents with NSTEMI and multivessel CAD. CABG is recommended. Risks and benefits discussed and he agrees to proceed. Plan for CABG in AM. Risk Model and Variables - STS Adult Cardiac Surgery Database Version 2.81 RISK SCORES About the STS Risk Calculator Procedure: CAB Only Risk of Mortality: 0.385% Morbidity or Mortality: 7.164% Long Length of Stay: 1.979% Short Length of Stay: 66.909% Permanent Stroke: 0.526% Prolonged Ventilation: 4.41% DSW Infection: 0.325% Renal Failure: 1.627% Reoperation: 2.797% ECHO is pending and I will update this risk profile if there are any other findings preoperatively which would increase risk. Problem Qualifiers (1) CAD (coronary artery disease): Qualified Codes: I25.110 - Atherosclerotic heart disease of [place] coronary artery with unstable angina pectoris (2) Hyperlipidemia: Qualified Codes: E78.2 - Mixed hyperlipidemia (3) Chest pain: Qualified Codes: I20.0 - Unstable angina (4) Hypertension: Qualified Codes: I10 - Essential (primary) hypertension Ana Lilia Banegas MD Nov 21, 2017 12:24
--- NOTE | 2017-11-21 14:04 | RADRPT ---
EXAM DATE: 11/21/2017 2:00 PM EDT AGE/SEX: 57 years / Male INDICATIONS: Chest pain CLINICAL DATA: This is the patient's subsequent encounter. Patient reports that signs and symptoms h ave been present for 1 week and indicates a pain score of 10/10. MEDICAL/SURGICAL HISTORY: Hypertension. Hypercholesterolemia. Gastroesophageal reflux disease . None. COMPARISON: No prior exams available for comparison. FINDINGS: PA and lateral views of the chest demonstrate the lungs to be symmetrically aerated without evidence of mass, infiltrate or effusion. The cardiomediastinal contours are unremarkable. Osseous structures are intact. CONCLUSION: Negative examination. Electronically signed by: Edson Escobar MD 11/21/2017 2:02 PM EDT
[2017-11-21 17:43] LABS: HEMOGLOBIN A1C 5.3 % (4.3-6.0)
--- NOTE | 2017-11-21 18:23 | EKG ---
Date Performed: 11/20/2017 Time Performed: 17:45:06 PTAGE: 57 years EKG: Sinus rhythm NONSPECIFIC ST & T-WAVE ABNORMALITY BORDERLINE ECG PREVIOUS TRACING : 11/20/2017 06.26 Since the previous tracing, no significant change noted DOCTOR: Ekaternia Clinton Interpretating Date/Time 11/21/2017 18:21:46
[2017-11-21] MEDS: ATORVASTATIN 40 MG TAB PO SCH (21:38)
[2017-11-22] VITALS (13 sets, daily range): BP systolic 96–139; BP diastolic 48–84; PULSE 68–109; RESP 12–21; TEMP 97.8–98.9; O2SAT 92–99
[2017-11-22] MEDS: CHLORHEXIDINE GLUCONATE 2 % 1 PACK (2 CLOTHS)(taper/protocol) TOPICAL SCH (04:00)
[2017-11-22] MEDS ORDERED: VANCOMYCIN HCL 1000 MG VIAL ONE (06:34)
[2017-11-22] MEDS ORDERED: methylPREDNISolone SOD SUCC 125 MG/2 ML VIAL ONE (06:34)
[2017-11-22] MEDS ORDERED: HEPARIN SODIUM - SQ 10,000 UNITS/ML VIAL ONE ×2 (06:34)
[2017-11-22 06:51] LABS: AUTOMATED NEUTROPHIL # 4.1 TH/MM3 (1.8-7.7); BASOPHIL % 0.5 % (0.0-2.0); EOSINOPHIL # 0.1 TH/MM3 (0-0.4); EOSINOPHIL % 1.4 % (0.0-4.0); HEMATOCRIT 45.9 % (39.0-51.0); HEMOGLOBIN 15.6 GM/DL (13.0-17.0); LYMPH % 29.5 % (9.0-44.0); MEAN CELL VOLUME 80.1 FL (80.0-100.0); MEAN CORPUSCULAR HEMOGLOBIN 27.3 PG (27.0-34.0); MEAN CORPUSCULAR HGB CONC 34.1 % (32.0-36.0); MEAN PLATELET VOLUME 7.7 FL (7.0-11.0); MONO % 7.3 % (0.0-8.0); MONOCYTE # 0.5 TH/MM3 (0-0.9); NEUT % 61.3 % (16.0-70.0); PLATELET COUNT 227 TH/MM3 (150-450); RED BLOOD COUNT 5.73 MIL/MM3 (4.50-5.90); RED CELL DISTRIBUTION WIDTH 13.5 % (11.6-17.2); WHITE BLOOD COUNT 6.7 TH/MM3 (4.0-11.0)
[2017-11-22] MEDS ORDERED: CARDIOPLEGIC IRR 2,000 ML ONE (07:25)
[2017-11-22 07:27] LABS: BICARBONATE 23.5 MEQ/L (21.0-32.0); CREATININE 0.76 MG/DL (0.60-1.30); MAGNESIUM 2.3 MG/DL (1.5-2.5)
[2017-11-22] MEDS ORDERED: MANNITOL INJ 100 ML ONE (07:27)
[2017-11-22] MEDS ORDERED: ALBUMIN 25% INJ 50 ML IV ONE (07:27)
[2017-11-22] MEDS ORDERED: HEPARIN SODIUM - IV 10,000 UNITS/10 ML VIAL ONE (07:28)
[2017-11-22 07:43] LABS: CALCIUM 9.3 MG/DL (8.5-10.1); TOTAL BILIRUBIN ADULT 0.7 MG/DL (0.2-1.0); TOTAL PROTEIN 7.7 GM/DL (6.4-8.2)
[2017-11-22 07:50] LABS: ALBUMIN 3.7 GM/DL (3.4-5.0); DIRECT BILIRUBIN ADULT 0.1 MG/DL (0.0-0.2); INDIRECT BILIRUBIN 0.6 MG/DL (0.0-0.8)
[2017-11-22] MEDS ORDERED: IOHEXOL 350 MG/ML 50 ML BTL (for Cath Lab) OTHER ONE (08:51)
[2017-11-22] MEDS ORDERED: NS 100 ML (PAB BAG) 100 ML IV ONE (12:00)
[2017-11-22] MEDS ORDERED: PROTAMINE SULFATE 250 MG/25 ML VIAL IV ONE (12:00)
[2017-11-22] MEDS ORDERED: ePHEDrine/NS 25 MG/5 ML SYRINGE IV ONE (12:00)
[2017-11-22] MEDS ORDERED: VECURONIUM BROMIDE 10 MG VIAL IV ONE (12:00)
[2017-11-22] MEDS ORDERED: TRANEXAMIC ACID INJ 1,000 MG/10 ML AMP IV ONE (12:00)
[2017-11-22] MEDS ORDERED: DEXTROSE 5% IN WATER 100ML INJ 100 ML IV ONE (12:00)
[2017-11-22] MEDS ORDERED: LACTATED RINGER'S 1000 ML INJ 1,000 ML IV ONE (12:00)
[2017-11-22] MEDS ORDERED: SODIUM CHLOR 0.9% 1000 ML INJ 1,000 ML IV ONE (12:00)
[2017-11-22] MEDS ORDERED: DEXMEDETOMIDINE HCL 200 MCG/2 ML VIAL IV ONE (12:00)
[2017-11-22] MEDS ORDERED: SODIUM CHLOR 0.9% 250 ML INJ 250 ML IV ONE (12:00)
[2017-11-22] MEDS ORDERED: NITROGLYCERIN 50 MG/DEXTROSE 5% SOLN 250 ML BTL IV ONE (12:00)
[2017-11-22] MEDS ORDERED: HEPARIN SODIUM - SQ 10,000 UNITS/ML VIAL IV FLUSH ONE (12:00)
[2017-11-22] MEDS ORDERED: VECURONIUM BROMIDE 20 MG VIAL ONE (12:18)
[2017-11-22] MEDS ORDERED: LACTATED RINGER'S 1000 ML INJ 500 ML IV PRN (13:05)
[2017-11-22] MEDS ORDERED: ALBUMIN 5% INJ 250 ML IV PRN (13:15)
[2017-11-22] MEDS ORDERED: SODIUM BICARBONATE 8.4% SOLN 50 MEQ/50 ML VIAL IV PUSH PRN ×2 (13:15)
[2017-11-22] MEDS ORDERED: POTASSIUM CHLORIDE 20 MEQ CONTROLLED RELEASE TAB PO PRN ×2 (13:15)
[2017-11-22] MEDS ORDERED: Post-op Orders (for Pharmacy) OTHER ONE (13:15)
[2017-11-22] MEDS ORDERED: DEXTROSE 50% IN WATER 50 ML VIAL(D50) IV PUSH PRN (13:15)
[2017-11-22] MEDS ORDERED: CALCIUM CHLORIDE 10% 1 GRAM/10 ML VIAL IV PUSH PRN (13:15)
[2017-11-22] MEDS ORDERED: RESP: RACEPINEPHRINE 2.25% 0.5 ML NEB NEB PRN (13:15)
[2017-11-22] MEDS ORDERED: ACETAMINOPHEN 325 MG TAB PO PRN (13:15)
[2017-11-22] MEDS ORDERED: POTASSIUM CHLOR 20 MEQ PREMIX 100 ML IV PRN ×3 (13:15)
[2017-11-22] MEDS ORDERED: INSULIN REGULAR (IV INFUSION) 100 UNITS in SODIUM CHLORIDE 0.9% INJ 99 ML IV PRN (13:15)
[2017-11-22] MEDS ORDERED: MAGNESIUM SULFATE INJ 2 GM in SODIUM CHLORIDE 0.9% INJ 100 ML IV PRN ×4 (13:15)
[2017-11-22] MEDS ORDERED: METOPROLOL TARTRATE 5 MG/5 ML VIAL IV PUSH PRN (13:15)
[2017-11-22] MEDS ORDERED: ONDANSETRON ODT 4 MG TAB SL PRN (13:15)
[2017-11-22] MEDS ORDERED: KETOROLAC TROMETHAMINE 30 MG/ML (IVP) VIAL IV PUSH PRN (13:15)
[2017-11-22] MEDS ORDERED: ACETAMINOPHEN 650 MG SUPP RECTAL PRN (13:15)
[2017-11-22] MEDS ORDERED: hydrALAZINE HCL 20 MG/ML VIAL IV PUSH PRN (13:15)
[2017-11-22] MEDS ORDERED: RESP: ALBUTEROL 2.5 MG/IPRATROPIUM 0.5 MG NEB (PRN) NEB (13:15)
--- NOTE | 2017-11-22 13:22 | PD.OP ---
cc: Ana Lilia Banegas MD; Frank Massey MD Operative Report Date of Surgery: Nov 22, 2017 Preoperative Diagnosis: (1) NSTEMI (non-ST elevated myocardial infarction) (2) Chest pain (3) CAD (coronary artery disease) Postoperative Diagnosis: same Procedure: CABG x 5 MAY to LAD - good, intramyocardial SVG to D1 - good SVG to OM1 - good SVG to OM@ - good SVG to RCA - fair EVH NAM Anesthesia: Dr. Barney Surgeon: Ana Lilia Banegas Equipment Tester(s): Jemma Soto, ODILIA Operation and Findings: The risks, benefits, complications, treatment options, and expected outcomes were discussed with the patient. The possibilities of reaction to medication, pulmonary aspiration, perforation of viscus, bleeding, recurrent infection, the need for additional procedures, failure to diagnose a condition, and creating a complication requiring transfusion or operation were discussed with the patient. The patient concurred with the proposed plan, giving informed consent. The site of surgery properly noted/marked. The patient was taken to Operating Room, identified as Ramón Dai and the procedure verified as CABG, EVH, NAM. A Time Out was held and the above information confirmed. Standard monitoring lines and Hauser catheter were placed. General anesthesia was induced. The patient was prepped and draped in a sterile fashion. A median sternotomy was performed and electrocautery was used to obtain hemostasis. The left internal mammary artery was procured as a pedicle from the 7th rib to the 1st rib in the usual manner. Simultaneously left greater saphenous vein was procured from the left leg using a minimally invasive endoscopic technique. The vein was prepared for anastomosis and the leg wound was irrigated and closed in 2 layers. The pericardium was opened and a pericardial sling was created using interrupted 0 silk sutures. The patient was heparinized for cardiopulmonary bypass and the distal mammary pedicle was instrumented for anastomosis. The heart was instrumented for cardiopulmonary bypass in the usual manner. Antegrade blood cardioplegia was employed. The patient was placed on cardiopulmonary bypass. An aortic cross-clamp was applied and the heart was arrested using cold blood cardioplegia. Antegrade cardioplegia was administered after he each anastomosis. After adequate arrest, the distal right coronary circulation was investigated and the distal RCA was opened with a [place] blade and found to be a 1.5 millimeter fair target. Saphenous vein was approximated to the RCA artery using a running 7 0 Prolene suture. The graft was measured for length and orientation and the proximal anastomosis was constructed to the ascending aorta using a running 5 0 Prolene suture after creating an aortotomy with a 5 millimeter punch. The OM2 artery was opened with a [place] blade and found to be a 1.5 millimeter good target. Saphenous vein was approximated to the OM2 artery using a running 7 0 Prolene suture. The graft was measured for length and orientation and the proximal anastomosis was constructed to the ascending aorta using a running 5 0 Prolene suture after creating an aortotomy with a 5 millimeter punch. The OM1 was opened with a [place] blade and found to be a 1.5 millimeter good target. Saphenous vein was approximated to the OM1 artery using a running 7 0 Prolene suture. The graft was measured for length and orientation and the proximal anastomosis was constructed to the ascending aorta using a running 5 0 Prolene suture after creating an aortotomy with a 5 millimeter punch. The 1st diagonal artery was then opened with a [place] blade and found to be a 1.5 millimeter good target. Saphenous vein was approximated to the D1 artery using a running 7 0 Prolene suture. The graft was measured for length and orientation and was suspended from the pericardium. The LAD was deeply intramyocardial. The distal LAD was opened with a [place] blade and found to be a 1.5 millimeter good target. The left internal mammary artery was approximated to the LAD using a running 7 0 Prolene suture. The pedicle was attached to the epicardium using interrupted 5 0 silk suture. The patient was systemically rewarmed and received a hotshot dose of warm blood cardioplegia. The aorta was vented and the proximal anastomosis to the D1 graft was accomplished using a running 5 0 Prolene suture after creating an aortotomy was a 5 millimeter punch. The cross-clamp was removed and all proximal and distal anastomoses were examined for hemostasis. The patient was weaned from cardiopulmonary bypass. Protamine was given. There was no adverse reaction. Decannulation was carried out without incident. Wound was checked for hemostasis which was obtained using electrocautery. A 36 Iranian mediastinal and 32 [place] left pleural chest tubes were placed and secured to the skin with 0 silk suture. The sternum was closed with stainless steel wire. The fascia was closed with 1. PDS. The subcutaneous tissue was closed using a running 2-0 Vicryl suture. The skin was closed with 4-0 Monocryl. Sterile dressings were placed. At the end of the operation, all sponge, instruments, and needle counts were correct. The patient was transferred to the CVICU in stable condition. Findings: Good LV function. ~1-2+ MR on NAM XC: 110 min CPB: 125 min Drains: mediastinal x 1 pleural x 1 Complications: none Disposition: to CVICU in stable condition Ana Lilia Banegas MD Nov 22, 2017 13:22
[2017-11-22] MEDS ORDERED: MIDAZOLAM HCL 2 MG/2 ML VIAL ONE ×2 (13:58)
[2017-11-22] MEDS: CALCIUM CHLORIDE INJ 1 GM in SODIUM CHLORIDE 0.9% INJ 100 ML IV PRN ×2 (13:58→17:24)
[2017-11-22] MEDS ORDERED: fentaNYL CITRATE 250 MCG/5 ML AMP ONE (13:58)
[2017-11-22] MEDS ORDERED: DEXMEDETOMIDINE INJ 200 MCG in SODIUM CHLORIDE 0.9% INJ 50 ML IV PRN (14:00)
[2017-11-22] MEDS ORDERED: CLEVIDIPINE INJ 50 ML IV PRN (14:00)
--- NOTE | 2017-11-22 14:50 | RADRPT ---
EXAM DATE: 11/22/2017 2:46 PM EDT AGE/SEX: 57 years / Male INDICATIONS: Post CAGB. CLINICAL DATA: This is the patient's subsequent encounter. Patient reports that signs and symptoms h ave been present for 3 days and indicates a pain score of Nonresponsive. MEDICAL/SURGICAL HISTORY: Hypertension. Gastroesophageal reflux disease. CABG. COMPARISON: [facility], CHEST SINGLE AP, 11/20/2017. . FINDINGS: ET tube in good position. Nasogastric tube across the GE junction. Mediastinal drain and left chest d rain in good position. Central line in expected location. Vena cava. Under aerated with minimal parenchymal changes left base as expected. CONCLUSION: Support apparatus in good position. No acute findings. Electronically signed by: Maciej Orozco MD 11/22/2017 2:49 PM EDT
[2017-11-22] MEDS: ACETAMINOPHEN 1000 MG/100 ML 100 ML IV SCH ×2 (15:11→19:49)
[2017-11-22] MEDS: RESP: ALBUTEROL 2.5 MG/IPRATROPIUM 0.5 MG NEB (SCH) NEB ×2 (16:49→21:51)
[2017-11-22] MEDS ORDERED: ICU - POTASSIUM CHLORIDE/AQUEOUS SOLN 20 MEQ/100 ML IVPB IV PRN (18:30)
[2017-11-22] MEDS: VANCOMYCIN INJ 1,000 MG in SODIUM CHLOR 0.9% 250 ML INJ 250 ML IV SCH (19:54)
[2017-11-22] MEDS: SODIUM CHLORIDE 0.9% FLUSH 10 ML FLUSH IV FLUSH SCH (21:00)
[2017-11-22] MEDS: AMIODARONE 200 MG TAB PO SCH (21:12)
[2017-11-22] MEDS: ATORVASTATIN 40 MG TAB PO SCH (21:12)
[2017-11-23] VITALS (11 sets, daily range): BP systolic 85–123; BP diastolic 57–74; PULSE 80–100; RESP 14–20; TEMP 97.6–99.1; O2SAT 94–98
[2017-11-23] MEDS: ACETAMINOPHEN 1000 MG/100 ML 100 ML IV SCH ×2 (02:29→06:20)
[2017-11-23] MEDS: CHLORHEXIDINE GLUCONATE 2 % 1 PACK (2 CLOTHS)(taper/protocol) TOPICAL SCH (04:00)
[2017-11-23] MEDS: RESP: ALBUTEROL 2.5 MG/IPRATROPIUM 0.5 MG NEB (SCH) NEB ×2 (04:07→09:33)
--- NOTE | 2017-11-23 04:59 | RADRPT ---
EXAM DATE: 11/23/2017 4:49 AM EDT AGE/SEX: 57 years / Male INDICATIONS: Shortness of breath, possible pulmonary disease. CLINICAL DATA: This is the patient's subsequent encounter. Patient reports that signs and symptoms h ave been present for 4 - 6 days and indicates a pain score of 7/10. MEDICAL/SURGICAL HISTORY: Hypertension. Gastroesophageal reflux disease. CABG. COMPARISON: [facility] [place], CHEST SINGLE AP, 11/22/2017. . FINDINGS: A single AP view of the chest demonstrates previous CABG. Minimal bibasilar densities. Mediastinal an d left-sided chest tube. No pneumothorax. Right jugular central line stable position. The cardiomedia stinal contours are unremarkable. Osseous structures are intact. CONCLUSION: Status post CABG. Minimal bibasilar atelectasis. No pneumothorax. Electronically signed by: Xavier Michelle MD 11/23/2017 4:58 AM EDT
[2017-11-23 05:46] LABS: HEMATOCRIT 40.5 % (39.0-51.0); HEMOGLOBIN 13.9 GM/DL (13.0-17.0); MEAN CELL VOLUME 80.5 FL (80.0-100.0); MEAN CORPUSCULAR HEMOGLOBIN 27.6 PG (27.0-34.0); MEAN CORPUSCULAR HGB CONC 34.2 % (32.0-36.0); MEAN PLATELET VOLUME 7.9 FL (7.0-11.0); PLATELET COUNT 183 TH/MM3 (150-450); RED BLOOD COUNT 5.03 MIL/MM3 (4.50-5.90); RED CELL DISTRIBUTION WIDTH 13.8 % (11.6-17.2); WHITE BLOOD COUNT 17.2 TH/MM3 (4.0-11.0)
[2017-11-23] MEDS: AMIODARONE 200 MG TAB PO SCH ×3 (06:20→21:40)
[2017-11-23] MEDS: PANTOPRAZOLE SOD 40 MG DELAYED RELEASE TAB PO SCH (06:20)
[2017-11-23 07:25] LABS: BICARBONATE 23.5 MEQ/L (21.0-32.0); CALCIUM 8.2 MG/DL (8.5-10.1); CREATININE 0.72 MG/DL (0.60-1.30); MAGNESIUM 2.2 MG/DL (1.5-2.5)
[2017-11-23] MEDS: VANCOMYCIN INJ 1,000 MG in SODIUM CHLOR 0.9% 250 ML INJ 250 ML IV SCH ×2 (08:31→21:39)
[2017-11-23] MEDS: ASPIRIN 81 MG CHEW TAB PO SCH (08:41)
[2017-11-23] MEDS: oxyCODONE/ACETAMINOPHEN 5 MG/325 MG TAB PO PRN ×3 (08:41→21:40)
[2017-11-23] MEDS: SODIUM CHLORIDE 0.9% FLUSH 10 ML FLUSH IV FLUSH SCH ×2 (08:41→21:40)
--- NOTE | 2017-11-23 09:52 | HHI.PR ---
Subjective Remarks Late entry 11/22/17: patient went for CABG 11/22/17 No events overnight VSS Objective Vitals Vital Signs Date Time Temp Pulse Resp B/P (MAP) Pulse Ox O2 Delivery O2 Flow Rate FiO2 11/23/17 09:33 97 Nasal Cannula 3.00 11/23/17 08:32 18 11/23/17 07:46 98 Nasal Cannula 2.00 11/23/17 07:44 80 11/23/17 07:43 97.6 80 20 104/69 (81) 98 123/74 (90) 11/23/17 04:07 98 Nasal Cannula 3.00 11/23/17 03:15 99 Nasal Cannula 6.00 11/23/17 03:15 99.1 98 20 98/65 (76) 98 108/57 (74) 11/23/17 03:03 99 11/22/17 23:40 99 Nasal Cannula 6.00 11/22/17 23:40 98.3 109 20 118/76 (90) 99 139/70 (93) 11/22/17 23:00 108 11/22/17 19:15 99 Nasal Cannula 6.00 11/22/17 19:15 98.9 105 20 120/80 (93) 97 136/82 (100) 11/22/17 19:00 102 11/22/17 16:45 94 Nasal Cannula 6.00 11/22/17 16:45 94 Nasal Cannula 6 11/22/17 15:35 98.7 100 19 101/71 (81) 92 109/70 (83) 11/22/17 15:35 92 Mechanical Ventilator 45 11/22/17 15:35 90 11/22/17 15:35 45 11/22/17 15:18 98 40 11/22/17 14:11 120 181/97 11/22/17 13:40 98.0 11/22/17 13:35 98.0 75 12 96/57 (70) 99 103/48 (66) 11/22/17 13:35 Mechanical Ventilator 50 11/22/17 13:35 50 I/O 11/22/17 11/22/17 11/22/17 11/23/17 11/23/17 11/23/17 07:00 15:00 23:00 07:00 15:00 23:00 Intake Total 250 ml 4200 ml 900 ml 500 ml Output Total 1550 ml 3050 ml 1410 ml 1480 ml Balance -1300 ml 1150 ml -510 ml -980 ml Intake Oral 250 ml 300 ml IV Total 900 ml 200 ml Autotransfusion 1200 ml Other 3000 ml Output Urine Total 1550 ml 650 ml 1300 ml 1180 ml Chest Tube Drainage Total 110 ml 300 ml Estimated Blood Loss 2400 ml # Bowel Movements 0 Result Diagram: 11/23/17 0525 11/23/17 0528 Imaging Last Impressions Chest X-Ray 11/23/17 0500 Signed Impressions: CONCLUSION: Status post CABG. Minimal bibasilar atelectasis. No pneumothorax. Lower Extremity Ultrasound 11/20/17 0000 Signed Impressions: CONCLUSION: 1. Patent saphenous veins with measurements as above. Carotid Artery Ultrasound 11/20/17 0000 Signed Impressions: CONCLUSION: 1. Right Internal Carotid Artery: No evidence of flow-limiting stenosis. 2. Left Internal Carotid Artery: Eccentric plaque without significant flow fields itation. Objective Remarks GENERAL: This is a well-nourished, well-developed patient, in no apparent distress. CARDIOVASCULAR: Regular rate and rhythm without murmurs, gallops, or rubs. RESPIRATORY: Clear to auscultation. Breath sounds equal bilaterally. No wheezes , rales, or rhonchi. GASTROINTESTINAL: Abdomen soft, non-tender, nondistended. No hepato-splenomegaly , or palpable masses. No guarding. MUSCULOSKELETAL: Extremities without clubbing, cyanosis, or edema. No joint tenderness, effusion, or edema noted. No calf tenderness. Negative Homans sign bilaterally. NEUROLOGICAL: Awake and alert. Cranial nerves II through XII intact. Motor and sensory grossly within normal limits. Five out of 5 muscle strength in all muscle groups. Normal speech. Procedures Status post cardiac cath 11/20/[address] Bryson rice A/P Assessment and Plan Very pleasant 57-year-old male with history of hypertension, hyperlipidemia, GERD presented with chest pain and an NSTEMI, S/P Cardiac cath patient with 3 vessel disease CTS consulted plan for CABG Non-ST elevation [place]. S/P Cardiac cath patient with 3 vessel disease CTS consulted plan for CABG Hypertension Hyperlipidemia GERD Transfer to the main hospital for cardiac cath Troponin was elevated and trending up EKG reviewed Dr. Bryson rice, following. Status post cardiac cath 11/20/17 was severe [place] three-vessel disease involving LAD, RCA and Lcx Cardiothoracic surgery has been consulted plan for CABG Check 2D echo to evaluate for EF and valvular disease Started on heparin drip Received aspirin and beta-myriam Resume home medications as appropriate Went for CABG 11/22/17 Elisa Nina MD Nov 23, 2017 09:52
[2017-11-23] MEDS ORDERED: DEXTROSE 50% IN WATER 50 ML VIAL(D50) IV PUSH PRN (11:30)
[2017-11-23] MEDS ORDERED: GLUCAGON 1 MG/ML VIAL OTHER PRN (11:30)
[2017-11-23] MEDS ORDERED: BISACODYL 10 MG SUPP RECTAL PRN (11:30)
--- NOTE | 2017-11-23 11:32 | PD.CAR.PN ---
CVT Progress Note CVT: POD #: 1 Subjective/Hospital Course: 11/23/17 s/p CABG x 5. doing well. No complaints this AM. Ready for transfer to [facility] Objective: Vital Signs Date Time Temp Pulse Resp B/P (MAP) Pulse Ox O2 Delivery O2 Flow Rate FiO2 11/23/17 11:04 98 Nasal Cannula 2.00 11/23/17 11:04 100 11/23/17 11:02 98.5 100 18 85/58 (67) 98 Arterial Line 11/23/17 09:50 18 11/23/17 09:33 97 Nasal Cannula 3.00 11/23/17 08:32 18 11/23/17 07:46 98 Nasal Cannula 2.00 11/23/17 07:44 80 11/23/17 07:43 97.6 80 20 104/69 (81) 98 123/74 (90) 11/23/17 04:07 98 Nasal Cannula 3.00 11/23/17 03:15 99 Nasal Cannula 6.00 11/23/17 03:15 99.1 98 20 98/65 (76) 98 108/57 (74) 11/23/17 03:03 99 11/22/17 23:40 99 Nasal Cannula 6.00 11/22/17 23:40 98.3 109 20 118/76 (90) 99 139/70 (93) 11/22/17 23:00 108 11/22/17 19:15 99 Nasal Cannula 6.00 11/22/17 19:15 98.9 105 20 120/80 (93) 97 136/82 (100) 11/22/17 19:00 102 11/22/17 16:45 94 Nasal Cannula 6.00 11/22/17 16:45 94 Nasal Cannula 6 11/22/17 15:35 98.7 100 19 101/71 (81) 92 109/70 (83) 11/22/17 15:35 92 Mechanical Ventilator 45 11/22/17 15:35 90 11/22/17 15:35 45 11/22/17 15:18 98 40 11/22/17 14:11 120 181/97 11/22/17 13:40 98.0 11/22/17 13:35 98.0 75 12 96/57 (70) 99 103/48 (66) 11/22/17 13:35 Mechanical Ventilator 50 11/22/17 13:35 50 Labs: Laboratory Tests Test 11/23/17 05:25 11/23/17 05:28 White Blood Count 17.2 TH/MM3 (4.0-11.0) Red Blood Count 5.03 MIL/MM3 (4.50-5.90) Hemoglobin 13.9 GM/DL (13.0-17.0) Hematocrit 40.5 % (39.0-51.0) Mean Corpuscular Volume 80.5 FL (80.0-100.0) Mean Corpuscular Hemoglobin 27.6 PG (27.0-34.0) Mean Corpuscular Hemoglobin Concent 34.2 % (32.0-36.0) Red Cell Distribution Width 13.8 % (11.6-17.2) Platelet Count 183 TH/MM3 (150-450) Mean Platelet Volume 7.9 FL (7.0-11.0) Blood Urea Nitrogen 10 MG/DL (7-18) Creatinine 0.72 MG/DL (0.60-1.30) Random Glucose 107 MG/DL (74-106) Calcium Level 8.2 MG/DL (8.5-10.1) Magnesium Level 2.2 MG/DL (1.5-2.5) Sodium Level 141 MEQ/L (136-145) Potassium Level 4.0 MEQ/L (3.5-5.1) Chloride Level 108 MEQ/L (98-107) Carbon Dioxide Level 23.5 MEQ/L (21.0-32.0) Anion Gap 10 MEQ/L (5-15) Estimat Glomerular Filtration Rate 112 ML/MIN (>89) Result Diagram: 11/23/17 0525 11/23/17 0528 Imaging: Last 24 hours Impressions Chest X-Ray 11/23/17 0500 Signed Impressions: CONCLUSION: Status post CABG. Minimal bibasilar atelectasis. No pneumothorax. Cardiovascular: RRR Telemetry: NSR Pulmonary: CTA GI/: NABS Incision: dry and intact CT: ~300ml/12hrs Plan: Transfer to stepdown Advance diet remove howard Encourage ambulation! Statin, ASA No BB secondary to low BP (1) Chest pain (2) NSTEMI (non-ST elevated myocardial infarction) Problem Qualifiers (1) Chest pain: Qualified Codes: I20.0 - Unstable angina Ana Lilia Banegas MD Nov 23, 2017 11:32
[2017-11-23] MEDS: MAGNESIUM HYDROXIDE SUSP 30 ML CUP PO SCH (12:15)
--- NOTE | 2017-11-23 12:55 | EKG ---
Date Performed: 11/23/2017 Time Performed: 05:30:14 PTAGE: 57 years EKG: Sinus rhythm Normal ECG PREVIOUS TRACING 11/20/17 Since the previous tracing, no significant change noted DOCTOR: Arsalan Maria Interpretating Date/Time 11/23/2017 12:52:14
[2017-11-23] MEDS: INSULIN ASPART SUPPLEMENTAL SCALE SQ SCH ×3 (14:00→22:00)
[2017-11-23] MEDS: SENNOSIDES 8.6 MG TAB PO SCH (21:39)
[2017-11-23] MEDS: ATORVASTATIN 40 MG TAB PO SCH (21:39)
[2017-11-23] MEDS: DOCUSATE SODIUM 100 MG CAP PO SCH (21:39)
[2017-11-24] VITALS (11 sets, daily range): BP systolic 107–115; BP diastolic 64–73; PULSE 72–105; RESP 14–22; TEMP 97.7–98.9; O2SAT 93–98
[2017-11-24] MEDS: INSULIN ASPART SUPPLEMENTAL SCALE SQ SCH ×5 (01:55→21:00)
[2017-11-24] MEDS: CHLORHEXIDINE GLUCONATE 2 % 1 PACK (2 CLOTHS)(taper/protocol) TOPICAL SCH (03:32)
[2017-11-24] MEDS: oxyCODONE/ACETAMINOPHEN 5 MG/325 MG TAB PO PRN ×4 (03:47→21:21)
[2017-11-24 05:51] LABS: AUTOMATED NEUTROPHIL # 11.5 TH/MM3 (1.8-7.7); BASOPHIL % 0.3 % (0.0-2.0); EOSINOPHIL % 0.1 % (0.0-4.0); HEMATOCRIT 36.6 % (39.0-51.0); HEMOGLOBIN 12.3 GM/DL (13.0-17.0); LYMPH % 11.5 % (9.0-44.0); LYMPHOCYTE # 1.6 TH/MM3 (1.0-4.8); MEAN CELL VOLUME 80.9 FL (80.0-100.0); MEAN CORPUSCULAR HEMOGLOBIN 27.2 PG (27.0-34.0); MEAN CORPUSCULAR HGB CONC 33.6 % (32.0-36.0); MEAN PLATELET VOLUME 7.9 FL (7.0-11.0); MONO % 7.6 % (0.0-8.0); MONOCYTE # 1.1 TH/MM3 (0-0.9); NEUT % 80.5 % (16.0-70.0); PLATELET COUNT 153 TH/MM3 (150-450); RED BLOOD COUNT 4.52 MIL/MM3 (4.50-5.90); WHITE BLOOD COUNT 14.3 TH/MM3 (4.0-11.0)
[2017-11-24] MEDS: PANTOPRAZOLE SOD 40 MG DELAYED RELEASE TAB PO SCH (06:09)
[2017-11-24] MEDS: AMIODARONE 200 MG TAB PO SCH ×3 (06:11→21:17)
[2017-11-24 06:14] LABS: BICARBONATE 25.8 MEQ/L (21.0-32.0); CALCIUM 8.2 MG/DL (8.5-10.1); CREATININE 0.84 MG/DL (0.60-1.30); MAGNESIUM 2.1 MG/DL (1.5-2.5)
[2017-11-24] MEDS: MULTIVITAMINS/MINERALS THERAPEUTIC TAB PO SCH (08:42)
[2017-11-24] MEDS: ASPIRIN 81 MG CHEW TAB PO SCH (08:42)
[2017-11-24] MEDS: DOCUSATE SODIUM 100 MG CAP PO SCH ×2 (08:42→21:17)
[2017-11-24] MEDS: POLYETHYLENE GLYCOL 17 GM PKG PO SCH (09:00)
[2017-11-24] MEDS: MAGNESIUM HYDROXIDE SUSP 30 ML CUP PO SCH (09:00)
[2017-11-24] MEDS: SODIUM CHLORIDE 0.9% FLUSH 10 ML FLUSH IV FLUSH SCH ×2 (09:00→21:00)
[2017-11-24] MEDS ORDERED: AMIODARONE 150 MG/D5W 97 ML BOLUS 10 MINUTES IV ONE ×2 (09:15)
[2017-11-24] MEDS: MAGNESIUM SULFATE 1 GM PREMIX 100 ML IV SCH ×2 (09:16→10:17)
--- NOTE | 2017-11-24 12:56 | PD.CAR.PN ---
CVT Progress Note CVT: POD #: 2 Subjective/Hospital Course: 11/23/17 s/p CABG x 5. doing well. No complaints this AM. Ready for transfer to [facility] 11/24/17 doing well. episode of SVT this AM which was treated. Objective: Vital Signs Date Time Temp Pulse Resp B/P (MAP) Pulse Ox O2 Delivery O2 Flow Rate FiO2 11/24/17 11:00 95 Nasal Cannula 2.00 11/24/17 11:00 96 11/24/17 11:00 98.6 90 20 108/70 (83) 95 11/24/17 09:37 130 117/72 11/24/17 08:50 93 Nasal Cannula 2.00 11/24/17 07:44 93 21 11/24/17 07:00 79 11/24/17 07:00 98.9 72 20 115/73 (87) 96 11/24/17 07:00 96 Room Air 11/24/17 03:00 97 Nasal Cannula 2.00 11/24/17 03:00 98.2 95 14 110/64 (79) 97 11/24/17 03:00 105 11/23/17 23:00 97 Nasal Cannula 2.00 11/23/17 23:00 95 11/23/17 23:00 98.2 95 14 110/64 (79) 97 11/23/17 19:00 98.0 85 16 106/68 (81) 94 11/23/17 19:00 85 11/23/17 19:00 94 Nasal Cannula 2.00 11/23/17 16:45 18 11/23/17 15:20 97.6 100 18 96/66 (76) 96 11/23/17 15:20 100 11/23/17 15:19 96 Room Air Labs: Laboratory Tests Test 11/24/17 05:30 White Blood Count 14.3 TH/MM3 (4.0-11.0) Red Blood Count 4.52 MIL/MM3 (4.50-5.90) Hemoglobin 12.3 GM/DL (13.0-17.0) Hematocrit 36.6 % (39.0-51.0) Mean Corpuscular Volume 80.9 FL (80.0-100.0) Mean Corpuscular Hemoglobin 27.2 PG (27.0-34.0) Mean Corpuscular Hemoglobin Concent 33.6 % (32.0-36.0) Red Cell Distribution Width 14.0 % (11.6-17.2) Platelet Count 153 TH/MM3 (150-450) Mean Platelet Volume 7.9 FL (7.0-11.0) Neutrophils (%) (Auto) 80.5 % (16.0-70.0) Lymphocytes (%) (Auto) 11.5 % (9.0-44.0) Monocytes (%) (Auto) 7.6 % (0.0-8.0) Eosinophils (%) (Auto) 0.1 % (0.0-4.0) Basophils (%) (Auto) 0.3 % (0.0-2.0) Neutrophils # (Auto) 11.5 TH/MM3 (1.8-7.7) Lymphocytes # (Auto) 1.6 TH/MM3 (1.0-4.8) Monocytes # (Auto) 1.1 TH/MM3 (0-0.9) Eosinophils # (Auto) 0.0 TH/MM3 (0-0.4) Basophils # (Auto) 0.0 TH/MM3 (0-0.2) CBC Comment DIFF FINAL Differential Comment Blood Urea Nitrogen 16 MG/DL (7-18) Creatinine 0.84 MG/DL (0.60-1.30) Random Glucose 105 MG/DL (74-106) Calcium Level 8.2 MG/DL (8.5-10.1) Magnesium Level 2.1 MG/DL (1.5-2.5) Sodium Level 139 MEQ/L (136-145) Potassium Level 4.2 MEQ/L (3.5-5.1) Chloride Level 105 MEQ/L (98-107) Carbon Dioxide Level 25.8 MEQ/L (21.0-32.0) Anion Gap 8 MEQ/L (5-15) Estimat Glomerular Filtration Rate 94 ML/MIN (>89) Result Diagram: 11/24/1752911/24/17529 Cardiovascular: RRR Telemetry: NSR Pulmonary: CTA GI/: NABS Incision: dry and intact CT: ~100ml/12hrs Plan: Remove chest tubes Start BB Encourage ambulation, stim BM D/C planning wean O2 (1) Chest pain (2) NSTEMI (non-ST elevated myocardial infarction) Problem Qualifiers (1) Chest pain: Qualified Codes: I20.0 - Unstable angina Ana Lilia Banegas MD Nov 24, 2017 12:56
[2017-11-24] MEDS: METOPROLOL TARTRATE 25 MG TAB PO SCH ×2 (13:52→21:18)
[2017-11-24] MEDS: ATORVASTATIN 40 MG TAB PO SCH (21:18)
[2017-11-24] MEDS: SENNOSIDES 8.6 MG TAB PO SCH (21:18)
[2017-11-25] VITALS (29 sets, daily range): BP systolic 103–122; BP diastolic 60–73; PULSE 74–98; RESP 16–22; TEMP 97.3–98.1; O2SAT 95–99
[2017-11-25] MEDS: CHLORHEXIDINE GLUCONATE 2 % 1 PACK (2 CLOTHS)(taper/protocol) TOPICAL SCH (04:00)
[2017-11-25] MEDS: AMIODARONE 200 MG TAB PO SCH ×3 (05:59→20:19)
[2017-11-25] MEDS: PANTOPRAZOLE SOD 40 MG DELAYED RELEASE TAB PO SCH (05:59)
[2017-11-25] MEDS: INSULIN ASPART SUPPLEMENTAL SCALE SQ SCH ×4 (08:02→21:00)
[2017-11-25] MEDS: MAGNESIUM HYDROXIDE SUSP 30 ML CUP PO SCH (08:42)
[2017-11-25] MEDS: ASPIRIN 81 MG CHEW TAB PO SCH (08:42)
[2017-11-25] MEDS: POLYETHYLENE GLYCOL 17 GM PKG PO SCH (08:42)
[2017-11-25] MEDS: oxyCODONE/ACETAMINOPHEN 5 MG/325 MG TAB PO PRN (08:42)
[2017-11-25] MEDS: METOPROLOL TARTRATE 25 MG TAB PO SCH ×2 (08:42→20:18)
[2017-11-25] MEDS: DOCUSATE SODIUM 100 MG CAP PO SCH ×2 (08:42→20:19)
[2017-11-25] MEDS: MULTIVITAMINS/MINERALS THERAPEUTIC TAB PO SCH (08:42)
[2017-11-25] MEDS: SODIUM CHLORIDE 0.9% FLUSH 10 ML FLUSH IV FLUSH SCH ×2 (08:43→20:20)
--- NOTE | 2017-11-25 11:19 | PD.CAR.PN ---
CVT Progress Note CVT: POD #: 3 Subjective/Hospital Course: 11/23/17 s/p CABG x 5. doing well. No complaints this AM. Ready for transfer to [facility] 11/24/17 doing well. episode of SVT this AM which was treated. 11/25/17 Chest tubes out yesterday. Doing well today. No BM yet Objective: Vital Signs Date Time Temp Pulse Resp B/P (MAP) Pulse Ox O2 Delivery O2 Flow Rate FiO2 11/25/17 10:03 96 11/25/17 09:00 98 11/25/17 08:27 96 21 11/25/17 08:00 94 11/25/17 07:55 97.3 88 16 122/70 (87) 98 11/25/17 07:55 Room Air 11/25/17 07:00 93 11/25/17 06:00 86 11/25/17 05:00 76 11/25/17 04:00 76 11/25/17 03:00 95 Room Air 11/25/17 03:00 97.9 77 22 117/62 (80) 95 11/25/17 03:00 77 11/25/17 02:00 78 11/25/17 01:00 74 11/25/17 00:00 74 11/24/17 23:00 84 11/24/17 23:00 97.7 84 22 112/70 (84) 97 11/24/17 23:00 97 Nasal Cannula 2.00 11/24/17 22:21 22 11/24/17 22:00 78 11/24/17 21:00 84 11/24/17 20:00 94 11/24/17 19:00 97.7 86 22 109/65 (80) 98 11/24/17 19:00 86 11/24/17 19:00 98 Nasal Cannula 2.00 11/24/17 18:13 89 11/24/17 15:00 96 11/24/17 15:00 97.8 86 18 107/72 (84) 98 11/24/17 15:00 98 Room Air Result Diagram: 11/24/17 0530 11/24/17 0530 Cardiovascular: RRR Telemetry: NSR Pulmonary: CTA GI/: NABS, NT Incision: dry and intact Plan: Stim BM Ambulate x 6 D/C tomorrow. (1) Chest pain (2) NSTEMI (non-ST elevated myocardial infarction) Problem Qualifiers (1) Chest pain: Qualified Codes: I20.0 - Unstable angina Ana Lilia Banegas MD Nov 25, 2017 11:19
--- NOTE | 2017-11-25 11:25 | HHI.FF ---
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 My clinical findings support the need for the requested home health care services because: Deconditioned w/ increased weakness Limited ability to care for self I certify that my clinical findings support that this patient is homebound because: Post-op weakness Ana Lilia Banegas MD Nov 25, 2017 11:25
[2017-11-25] MEDS ORDERED: AMIO200T PO (11:31)
[2017-11-25] MEDS ORDERED: THERM PO (11:31)
[2017-11-25] MEDS ORDERED: ATOR40TA16 PO (11:31)
[2017-11-25] MEDS ORDERED: ASPI81 PO (11:31)
[2017-11-25] MEDS ORDERED: DOCU1CAP39 PO (11:31)
[2017-11-25] MEDS ORDERED: METO25TA3 PO (11:31)
[2017-11-25] MEDS ORDERED: OXYC1TAB63 PO (11:31)
[2017-11-25] MEDS: ATORVASTATIN 40 MG TAB PO SCH (20:18)
[2017-11-25] MEDS: SENNOSIDES 8.6 MG TAB PO SCH (20:19)
--- NOTE | 2017-11-25 23:20 | EKG ---
Date Performed: 11/24/2017 Time Performed: 08:50:14 PTAGE: 57 years EKG: Atrial fibrillation with rapid ventricular response with non-sustained ventricular tachycar lucila. Abnormal ECG PREVIOUS TRACING : 11/23/2017 05.30 DOCTOR: Bridget Douglas Interpretating Date/Time 11/25/2017 23:06:21
[2017-11-26] VITALS (12 sets, daily range): BP systolic 109–127; BP diastolic 62–77; PULSE 72–96; RESP 16–20; TEMP 97.6–98.6; O2SAT 96–99
[2017-11-26] MEDS: oxyCODONE/ACETAMINOPHEN 5 MG/325 MG TAB PO PRN (00:09)
[2017-11-26 03:33] LABS: HEMATOCRIT 34.3 % (39.0-51.0); HEMOGLOBIN 11.8 GM/DL (13.0-17.0); MEAN CELL VOLUME 80.7 FL (80.0-100.0); MEAN CORPUSCULAR HEMOGLOBIN 27.7 PG (27.0-34.0); MEAN CORPUSCULAR HGB CONC 34.3 % (32.0-36.0); MEAN PLATELET VOLUME 7.9 FL (7.0-11.0); PLATELET COUNT 196 TH/MM3 (150-450); RED BLOOD COUNT 4.25 MIL/MM3 (4.50-5.90); RED CELL DISTRIBUTION WIDTH 13.8 % (11.6-17.2); WHITE BLOOD COUNT 8.7 TH/MM3 (4.0-11.0)
[2017-11-26] MEDS: INSULIN ASPART SUPPLEMENTAL SCALE SQ SCH ×2 (08:00→11:11)
[2017-11-26] MEDS: PANTOPRAZOLE SOD 40 MG DELAYED RELEASE TAB PO SCH (08:20)
[2017-11-26] MEDS: METOPROLOL TARTRATE 25 MG TAB PO SCH (08:20)
[2017-11-26] MEDS: AMIODARONE 200 MG TAB PO SCH (08:20)
[2017-11-26] MEDS: ASPIRIN 81 MG CHEW TAB PO SCH (08:20)
[2017-11-26] MEDS: DOCUSATE SODIUM 100 MG CAP PO SCH (08:21)
[2017-11-26] MEDS: POLYETHYLENE GLYCOL 17 GM PKG PO SCH (08:21)
[2017-11-26] MEDS: MULTIVITAMINS/MINERALS THERAPEUTIC TAB PO SCH (08:21)
[2017-11-26] MEDS: SODIUM CHLORIDE 0.9% FLUSH 10 ML FLUSH IV FLUSH SCH (08:21)
[2017-11-26] MEDS: MAGNESIUM HYDROXIDE SUSP 30 ML CUP PO SCH (08:21)
--- NOTE | 2017-11-26 09:32 | RSPPFT ---
DATE OF PROCEDURE: 11/21/17 COMMENTS: The forced vital capacity shows a small reduction. The FEV1, FEV1/FVC ratio and FEF 25-75 are all normal. IMPRESSION: This is compatible with mild, restrictive lung disease.
== END 2017-11-26 12:19 | disposition home or self-care (01) | DRG 234 ==
LOC: PHED 05:55 → PHEDA 06:54 → HIMN 09:20 → HCPC 11-22 07:48 → HCVI 11-22 13:36 → HCPC 11-24 17:16
PROVIDERS: ADMIT Thoracic Surgery (Cardiothoracic Vascular Surgery); ATTEND Thoracic Surgery (Cardiothoracic Vascular Surgery)
PROC: B2151ZZ Fluoroscopy of Left Heart using Low Osmolar Contrast (ICD-10-PCS; 2017-11-20)
PROC: B2111ZZ Fluoroscopy of Multiple Coronary Arteries using Low Osmolar Contrast (ICD-10-PCS; 2017-11-20)
PROC: B31J1ZZ Fluoroscopy of Left Upper Extremity Arteries using Low Osmolar Contrast (ICD-10-PCS; 2017-11-20)
PROC: 4A023N7 Measurement of Cardiac Sampling and Pressure, Left Heart, Percutaneous Approach (ICD-10-PCS; principal; 2017-11-20 14:00)
PROC: 021309W Bypass Coronary Artery, Four or More Arteries from Aorta with Autologous Venous Tissue, Open Approach (ICD-10-PCS; 2017-11-22)
PROC: 06BQ4ZZ Excision of Left Saphenous Vein, Percutaneous Endoscopic Approach (ICD-10-PCS; 2017-11-22)
PROC: B246ZZ4 Ultrasonography of Right and Left Heart, Transesophageal (ICD-10-PCS; 2017-11-22)
PROC: 5A1221Z Performance of Cardiac Output, Continuous (ICD-10-PCS; 2017-11-22)
PROC: 02100Z9 Bypass Coronary Artery, One Artery from Left Internal Mammary, Open Approach (ICD-10-PCS; 2017-11-22 07:04)
DX: I21.4 Non-ST elevation (NSTEMI) myocardial infarction (principal); I47.2 Ventricular tachycardia; D75.1 Secondary polycythemia; Z68.34 Body mass index [BMI] 34.0-34.9, adult; I47.1 Supraventricular tachycardia; I10 Essential (primary) hypertension; I25.110 Atherosclerotic heart disease of native coronary artery with unstable angina pectoris; K21.9 Gastro-esophageal reflux disease without esophagitis; M54.2 Cervicalgia; G89.29 Other chronic pain; M25.519 Pain in unspecified shoulder; G47.30 Sleep apnea, unspecified; E78.2 Mixed hyperlipidemia; E66.9 Obesity, unspecified; Z82.49 Family history of ischemic heart disease and other diseases of the circulatory system
CPT/HCPCS: 36430; 71045; 71046; 76937; 80048; 80061; 80076; 82550; 82552; 82948; 83036; 83735; 84484; 85025; 85027; 85610; 85730; 86850; 86900; 86901; 86920; 87641; 93005; 93318; 93458; 93880; 93970; 93998; 94002; 94010; 94150; 94640; 94664; 94667; 94668; 99152; 99153; C1769; C1893; C9248; J0131; J0282; J1644; J1815; J1817; J1885; J2150; J2250; J2440; J2720; J2930; J3010; J3370; J3475; J3480; J7030; J7040; J7050; J7120; P9016; P9047; Q9967